=== PATIENT | female | born 1990 | race Asian ===

== ENCOUNTER 2019-11-11 19:11 | Emergency (ER) | payer BC, SELFPAY ==
--- NOTE | ~2019-11-11 | CT_ITS ---
EXAMINATION: CTA chest PE protocol EXAM DATE: 11/11/2019 21:29 INDICATION: Shortness of breath. Chest pain. Allergic reaction. TECHNIQUE: Spiral CTA of the chest (pulmonary arteries) was performed with 100 cc Omnipaque 350 intr avenous contrast injection. Images were acquired during the pulmonary arterial phase. Coronal maxi mum intensity projection 3D-reconstructions were created by the technologist on dedicated workstation . Axial, coronal and sagittal reformatted images were reviewed. The dose-length product (DLP) for t his examination was 219.29 mGy-cm. The exposure was tailored according to patient size (auto mA exp osure control), and iterative reconstruction (ASIR) was used as additional dose reduction technique. There is no prior study for comparison. FINDINGS: Pulmonary arteries are well opacified and without intraluminal filling defects. No thora cic aortic dissection. The lungs are clear. There are no pleural or pericardial effusions. Trach eobronchial tree is patent. There is no mediastinal, hilar or axillary lymphadenopathy. There is no pneumothorax. Heart normal in size. No evidence of coronary arterial calcification. Upper abd omen is unremarkable. The bones are unremarkable. IMPRESSION: 1. Unremarkable CT pulmonary examination. Reviewed, dictated and finalized at location A.
[2019-11-11 19:15] VITALS: BP 143/88; PULSE 118; RESP 20; TEMP 36.8; O2SAT 99
[2019-11-11 19:42] VITALS: BP 138/100; PULSE 112; RESP 22; O2SAT 98
[2019-11-11 19:47] VITALS: O2SAT 100
--- NOTE | 2019-11-11 20:01 | ECG_ITS ---
Measurements Intervals [place] Rate: 98 P: 52 ID: [id number] QRS: 25 QRSD: 84 T: 31 QT: 328 QTc: 420 Interpretive Statements SINUS RHYTHM NONSPECIFIC T-WAVE ABNORMALITY- ANT/INF LEADS BASELINE WANDER- V4-V6 BORDERLINE ECG Electronically Signed On 11-12-2019 7:19:08 CDT by Joni Dash D.O.
--- NOTE | 2019-11-11 20:03 | ED.ALLEREA ---
HPI - Allergic Reaction General Chief complaint: Allergic Reaction Stated complaint: ALLERGIC REACTION Time Seen by Provider: 11/11/19 19:48 Source: patient Mode of arrival: ambulatory Limitations: no limitations History of Present Illness HPI narrative: This patient is a 29 year old female who presents for evaluation of lip swelling and chest pain. She states yesterday she developed a rash to her abdomen, axilla and extremities so she was evaluated at . She states at that time she was prescribed bactrim for bedbugs . She was also evaluated at an ER yesterday because her rash progressed. Her rash improved after she was given Decadron, pepcid and benadryl. Today she noticed that she starting having midsternal chest pain when she took a breath. She also noticed approximately 1.5 hour ago she had swelling to right lower lip. She has not taken any benadryl, steroid today. She states she has not taken bactrim since yesterday. She denies taking any ACEI. Onset (ago): hour(s) (2) Related Data Home Medications Medication Instructions Recorded Confirmed L norgest/e.estradiol-e.estrad 1 tablet PO DAILY 11/11/19 Allergies Allergy/AdvReac Type Severity Reaction Status Date / Time No Known Allergies Allergy Verified 11/11/19 19:44 Review of Systems Review of Systems: All systems reviewed & are unremarkable except as noted in HPI and below Constitutional: Constitutional: Denies chills and Denies fever(s) ENT: Denies dysphagia and Denies sore throat Comments: lip swelling Cardiovascular: Cardiovascular: Reports chest pain Respiratory: Respiratory: Denies cough and Denies dyspnea Gastrointestinal: Gastrointestinal: Denies abdominal pain, Denies nausea and Denies vomiting Integumentary/Breasts: Skin/Breast: Reports rash Allergic/Immunologic: Allergic/Immunologic: Reports lip swelling, Denies throat swelling and Denies tongue swelling PMF Family History Family History (Updated 11/06/12 @ 14:12 by DOCTOR UNKNOWN) Other Cerebrovascular accident Diabetes mellitus Family history of heart disease in male family member before age 55 Social History Social History Smoking status: Never smoker Alcohol intake: current Gender identity (if verbalized by the patient): Female Exam Const: General: no acute distress and alert Orientation/consciousness: patient oriented x3 HENMT: Head: normocephalic and atraumatic Face and sinus: sinuses nontender Mouth: Yes oropharynx normal, Yes moist mucous membranes and Yes other (right lower lip with mild swelling, no tongue involvement) Throat: posterior oropharynx normal and uvula midline Eyes: Conjunctivae: conjunctivae normal Pupils: Equal, round and reactive pupils present EOM: EOMs intact bilaterally Chest: Chest palpation & inspection: tenderness (sternal tenderness) sternum Resp: Effort & Inspection: normal respiratory effort and not tachypneic Auscultation: clear to auscultation bilaterally Cardio: Rate: tachycardic Rhythm: regular rhythm Heart sounds: no murmurs GI: GI Palp: Yes Soft to palpation, No Tenderness to palpation present (GI), No Guarding due to palpation present (GI), No Rigid due to palpation and No Hernia present Skin: Other: scattered insect bites to legs with mild rash to left upper thigh (urticaria) Course Reevaluation(s) Reevaluation #1: Patient has no complaints and she feels better. She likely has leukocytosis from steroid use. She will discontinue taking bactrim Date: 11/11/19 Time: 22:47 Vital Signs Vital signs: Vital Signs Temperature 98.3 F 11/11/19 19:15 Pulse Rate 118 H 11/11/19 19:15 Respiratory Rate 20 11/11/19 19:15 Blood Pressure 143/88 H 11/11/19 19:15 Pulse Oximetry 99 11/11/19 19:15 Temperature 98.3 F 11/11/19 19:15 Pulse Rate 96 11/11/19 22:39 Respiratory Rate 14 11/11/19 22:39 Blood Pressure 136/100 H 11/11/19 22:39 Pulse Oximetry 100 11/11/19 22:39 MDM
[2019-11-11] MEDS: FAMOTIDINE 20 MG/2 ML VIAL IV PUSH (20:17)
[2019-11-11] MEDS: KETOROLAC 15 MG/ML VIAL (*BKC) IV PUSH (20:21)
[2019-11-11] MEDS: predniSONE 20 MG TABLET 60 MG PO (20:21)
[2019-11-11 20:27] LABS: Basophils Percent Auto 0.2 % (0.2-1.2); Eosinophils Percent Auto 0.1 % (0-4.4); Hemoglobin 13.8 g/dL (12.0-15.0); Immature Granulocyte Absolute 0.08 K/mm3 (0.00-0.031); Immature Granulocyte Percent A 0.4 % (0-0.5); Lymphocytes Absolute Auto 3.13 K/mm3 (0.9-3.2); Lymphocytes Percent Auto 17.5 % (18.3-44.2); Mean Corpuscular HGB Conc 33.7 g/dl (32-36); Mean Corpuscular Hemoglobin 31.2 pg (26-34); Mean Corpuscular Volume 92.8 fl (80-100); Mean Platelet Volume 8.8 fl (7.4-10.4); Monocytes Absolute Auto 1.3 K/mm3 (0.1-0.6); Neutrophils Absolute Auto 13.4 K/mm3 (1.3-6.7); Neutrophils Percent Auto 74.8 % (45.5-73.1); Platelet Count Result 375 k/mm3 (150-375); Red Blood Count 4.42 M/mm3 (4.2-5.4); Red Cell Distribution Width 11.9 % (11.5-14.5); White Blood Count 17.9 K/mm3 (4.5-10.0)
[2019-11-11 20:38] LABS: Prothrombin Time 12.6 Seconds (11.1-14.7)
[2019-11-11 20:39] LABS: Partial Thromboplastin Time 26.9 SECONDS (22.3-36.8)
[2019-11-11 20:41] LABS: D Dimer 1.66 ug/mL (<0.48)
[2019-11-11 20:51] LABS: Alanine Aminotransferase 18 U/L (4-35); Albumin Level 4.6 g/dL (3.5-5.1); Alkaline Phosphatase 54 U/L (38-126); Aspartate Amino Transferase 22 U/L (14-36); Bilirubin,Total 0.4 mg/dL (0.2-1.3); Blood Urea Nitrogen 15 mg/dL (7-17); Calcium 9.2 mg/dL (8.4-10.2); Carbon Dioxide 23 mmol/L (22-30); Chloride 104 mmol/L (98-107); Estimated CRCL calculation 83 ml/min; Estimated Glomerular Filt Rate > 60; Glucose 107 mg/dL (65-105); Potassium 3.5 mmol/L (3.4-5.0); Sodium 139 mmol/L (137-145); Troponin I < 0.012 ng/mL (0.000-0.034)
[2019-11-11 21:00] VITALS: BP 136/93; PULSE 99; RESP 16; O2SAT 98
[2019-11-11 22:39] VITALS: BP 136/100; PULSE 96; RESP 14; O2SAT 100
== END 2019-11-11 23:00 | disposition home or self-care (01) ==
PROVIDERS: Emergency Provider General Practice; PCP Physician Assistant
DX: R07.89 Other chest pain (principal); R22.0 Localized swelling, mass and lump, head; T36.8X5A Adverse effect of other systemic antibiotics, initial encounter
CPT/HCPCS: 36415; 71275; 80053; 81025; 84484; 85025; 85380; 85610; 85730; 93005; 96374; 96375; 99284; J1200; J1885; J7512; Q9967

== ENCOUNTER 2020-03-23 21:36 | Emergency (ER) | payer BC, SELFPAY ==
[2020-03-23 21:40] VITALS: BP 148/98; PULSE 83; RESP 17; TEMP 35.8; O2SAT 97
--- NOTE | 2020-03-23 22:14 | ED.HA ---
HPI - Headache General Chief Complaint: Headache Stated Complaint: headache x 1 month, n/v Time Seen by Provider: 03/23/20 22:13 Source: patient Mode of arrival: ambulatory Limitations: no limitations History of Present Illness HPI Narrative: Patient is a 29-year-old female who has a history of migraine headaches who presents for evaluation of acute on chronic migraine headache. She reports she has been having daily migraines which is typical for her, they usually improve with ibuprofen or Maxalt, but patient states that headache pain worsened today. It has been more severe than other days, but is still typical for her migraine headaches. She reports photosensitivity to light. She reports nausea without vomiting. She denies any vision changes, ear ringing or numbness/weakness. She is ambulatory. She reports pain that radiates into her shoulders. She reports pain when she moves her shoulders. She denies any fever, chills, cough, shortness of breath. No history of cancer. No difficulty with ambulation. She denies any dizziness. Related Data Home Medications Medication Instructions Recorded Confirmed L norgest/e.estradiol-e.estrad 1 tablet PO DAILY 03/23/20 Allergies Allergy/AdvReac Type Severity Reaction Status Date / Time No Known Allergies Allergy Verified 03/23/20 21:38 Review of Systems Review of Systems: Narrative: CONSTITUTIONAL: Denies fever EYES: Denies visual changes ENT: Denies rhinorrhea, congestion, sore throat, or otalgia. CARDIOVASCULAR: Denies chest pain RESPIRATORY: Denies cough or dyspnea. GASTROINTESTINAL: Denies abdominal pain, reports nausea without vomiting GENITOURINARY: Denies dysuria or hematuria. SKIN: Denies rash or itching. MUSCULOSKELETAL: Denies back pain, joint pain, or myalgia. NEUROLOGIC: Reports headache without numbness, or weakness. [facility] Past Medical History Medical History Migraine Family History Family History (Updated 11/06/12 @ 14:12 by DOCTOR UNKNOWN) Other Cerebrovascular accident Diabetes mellitus Family history of heart disease in male family member before age 55 Social History Social History Smoking status: Never smoker Alcohol intake: current Gender identity (if verbalized by the patient): Female Exam Narrative: Exam Narrative: GENERAL: Awake, alert, conversant HEAD: Normocephalic, atraumatic. EYES: 2+ PERRLA and EOMI. ENT: Nares clear, no rhinorrhea or epistaxis. Mucous membranes moist. NECK: Supple. CHEST: No respiratory distress, breathing even and non labored HEART: Regular rate, sinus rhythm ABDOMEN:Non distended, non tender EXTREMITIES: Normal range of motion. No edema. SKIN: Warm, dry, no rash. NEURO:No focal deficits. Alert and oriented x3. Finger to nose intact bilaterally. EOMs intact without nystagmus. No facial droop/asymmetry noted bilaterally. Grimace intact. Intact sensation in face. Hearing intact bilaterally. Shoulder shrug intact. Strength 5/5 bilateral upper extremities. Strength 5/5 bilateral lower extremities. Reflexes 2+ patellar. Heel to ruiz intact bilaterally. Ambulatory with a narrow base, steady gait, no ataxia. Course Vital Signs Vital signs: Vital Signs Temperature 35.8 C L 03/23/20 21:40 Pulse Rate 83 03/23/20 21:40 Respiratory Rate 17 03/23/20 21:40 Blood Pressure 148/98 H 03/23/20 21:40 Pulse Oximetry 97 03/23/20 21:40 Temperature 35.8 C L 03/23/20 21:40 Pulse Rate 83 03/23/20 21:40 Respiratory Rate 17 03/23/20 21:40 Blood Pressure 148/98 H 03/23/20 21:40 Pulse Oximetry 97 03/23/20 21:40 MDM - Headache MDM Narrative Medical decision making narrative: The patient was evaluated in the emergency department for headache. At the time of assessment, ABCs are intact and vital signs are stable. Patient is neurologically intact without any neurological deficits.
[2020-03-23] MEDS: METOCLOPRAMIDE HCL INJ 10 MG/2 ML VIAL IV PUSH (22:50)
[2020-03-23] MEDS: diphenhydrAMINE HCl INJ 50 MG/ML VIAL 25 MG IV PUSH (22:50)
[2020-03-23] MEDS: SODIUM CHLORIDE 0.9% IV 1,000 ML 999 ML IV CONT (22:51)
[2020-03-23] MEDS: KETOROLAC 15 MG/ML VIAL (*BKC) IV PUSH (23:08)
[2020-03-23] MEDS: MAGNESIUM SULF 2 GM/WATER 50ML 2 GM/50 ML BAG IVPB (23:08)
[2020-03-24 00:40] VITALS: BP 143/97; PULSE 85; RESP 18; O2SAT 100
== END 2020-03-24 01:00 | disposition home or self-care (01) ==
PROVIDERS: Emergency Provider Emergency Medicine; PCP Physician Assistant
DX: G43.909 Migraine, unspecified, not intractable, without status migrainosus (principal)
CPT/HCPCS: 96365; 96367; 96375; 99284; J0131; J1100; J1200; J1885; J2765; J3475; J7030

== ENCOUNTER → 2022-08-14 10:38 | Outpatient (CLI) | payer BC, SELFPAY ==
--- NOTE | ~2022-08-14 | XR_ITS ---
XR_CERV2-3V_CR DATE: 08/14/2022 11:12 INDICATION: Neck pain TECHNIQUE: AP, open-mouth and lateral views COMPARISON: None FINDINGS: There is reversal of cervical curvature which may be due to muscle spasm. There is slight d extroscoliosis of the cervical and upper thoracic spine. C1 and C2 are normally aligned and the odontoid process is intact. No fracture or dislocation, locked facet or prevertebral soft tissue swelling. Cervical interspaces are preserved. IMPRESSION: Reversal cervical curvature and slight dextroscoliosis Reviewed, dictated and finalized at Location A. Reviewed, dictated and finalized at location B. APEUTIC CASE MANAGER
--- NOTE | ~2022-08-14 | XR_ITS ---
XR thoracic spine 2V DATE: 08/14/2022 11:12 INDICATION: Thoracic spine pain TECHNIQUE: AP, lateral, swimmer views COMPARISON: None FINDINGS: There is reversal of cervical curvature. No fracture or dislocation or bone destruction of the thoracic spine. The thoracic pedicles are intac t. No paraspinal soft tissue thickening. IMPRESSION: Negative thoracic spine Reviewed, dictated and finalized at location B. GE MANAGEMENT SYSTEM OPERATOR IMPRESSION: Negative thoracic spine
== END ==
PROVIDERS: PCP Physician Assistant; Visit Provider Physician Assistant
DX: M54.2 Cervicalgia (principal); M54.6 Pain in thoracic spine
CPT/HCPCS: 72040; 72070

== ENCOUNTER → 2023-02-23 07:57 | Outpatient (CLI) | payer BC, SELFPAY ==
--- NOTE | ~2023-02-23 | US_ITS ---
EXAMINATION: US abdomen limited DATE: 02/23/2023 08:22 INDICATION: Right upper quadrant abdominal pain. TECHNIQUE: Multiple grayscale and Doppler ultrasound images of the abdomen were obtained. COMPARISON: CT chest 11/11/2019 FINDINGS: The visualized portions of the head and body of the pancreas are normal. There is a 7 mm hy perechoic mass in the liver. There is antegrade flow in main portal vein. The gallbladder is normal i n size. No gallstones or gallbladder wall thickening. There is no sonographic Pepper sign. The common duct is normal and measures 4 mm. IMPRESSION: 1. 7 mm hyperechoic liver mass. In the absence of known malignancy or chronic liver disease, this fin ding is likely a hemangioma. Reviewed, dictated and finalized at location A. IMPRESSION: 1. 7 mm hyperechoic liver mass. In the absence of known malignancy or chronic l iver disease, this finding is likely a hemangioma.
== END ==
PROVIDERS: PCP Physician Assistant; Visit Provider Physician Assistant
DX: R10.11 Right upper quadrant pain (principal); R16.0 Hepatomegaly, not elsewhere classified
CPT/HCPCS: 76705

== ENCOUNTER → 2023-03-06 09:01 | Outpatient (CLI) | payer BC, SELFPAY ==
--- NOTE | ~2023-03-06 | CT_ITS ---
EXAMINATION: CT abdomen wo/w con DATE: 03/06/2023 09:32 INDICATION: Hepatic hemangioma TECHNIQUE: Computed tomography (CT) of the abdomen and pelvis was performed without and with 100 mL O mnipaque-350 intravenous contrast. Automated exposure control and iterative reconstruction technique were employed. The dose-length product was 546.89 mGy-cm. COMPARISON: Ultrasound dated 02/18/2023 FINDINGS: Lung bases are clear. Heart size is normal. No pericardial or pleural effusion. Small region of focal hepatic steatosis at the ligamentum teres. No other hepatic lesions identified. Specifically no evid ent correlate for the 7 mm hyperechoic lesion on prior ultrasound. Gallbladder, pancreas, spleen, nicola ateral adrenal glands and kidneys are normal. Visualized portions of bowels are unremarkable. Small f at-containing umbilical hernia. No pathologically enlarged abdominal or upper pelvic lymphadenopathy. Bones are unremarkable. IMPRESSION: 1. No correlate identified for the 7 mm hyperechoic hepatic lesion identified on prior ultrasound. Reviewed, dictated and finalized at location A. IMPRESSION: 1. No correlate identified for the 7 mm hyperechoic hepatic lesion identified o n prior ultrasound.
== END ==
PROVIDERS: PCP Physician Assistant; Visit Provider Physician Assistant
DX: D18.03 Hemangioma of intra-abdominal structures (principal)
CPT/HCPCS: 74170; Q9967

== ENCOUNTER 2023-09-13 08:11 | Outpatient (CLI) | payer BC, SELFPAY ==
--- NOTE | ~2023-09-13 | NM_ITS ---
EXAMINATION: NM hepatobiliary w pharm DATE: 09/13/2023 10:10 INDICATION: Upper abdominal pain. COMPARISON: CT abdomen 03/06/2023 TECHNIQUE: 4.9 mCi Tc-99m mebrofenin (Choletec) was administered intravenously. Scintigraphic images of the abdomen were obtained for one hour. Then, 1.46 mcg sincalide (Kinevac) IV was administered, a nd imaging was continued for 30 minutes. FINDINGS: There is normal clearance of radiotracer from the blood pool. There is homogeneous tracer u ptake by the liver. Activity progresses to the bowel and gallbladder. Gallbladder ejection fraction (GBEF) was 15%. Note that most patients with gallbladder dysfunction have GBEF < 35%, which overlaps with the broad normal range of 10-90%. IMPRESSION: 1. Gallbladder ejection fraction in the lower range of normal. Note that this value overlaps with th e range of values that may be seen with gallbladder dysfunction and/or chronic cholecystitis if there is appropriate clinical correlation. Reviewed, dictated and finalized at location A. IMPRESSION: 1. Gallbladder ejection fraction in the lower range of normal. Note that this value overlaps with the range of values that may be seen with gallbladder dysfu nction and/or chronic cholecystitis if there is appropriate clinical correlatio nVipul
== END 2023-09-13 08:12 | disposition home or self-care (01) ==
PROVIDERS: PCP Physician Assistant; Visit Provider Physician Assistant
DX: R10.10 Upper abdominal pain, unspecified (principal)
CPT/HCPCS: 78227; A9537; J2805

== ENCOUNTER 2023-11-14 12:34 | Outpatient (CLI) | payer BC, SELFPAY ==
[2023-11-14 13:19] LABS: Hematocrit 38.8 % (37.0-47.0); Hemoglobin 12.7 g/dL (12.0-15.0)
[2023-11-14 13:25] LABS: Alanine Aminotransferase 13 U/L (6-35); Albumin Level 4.3 g/dL (3.5-5.1); Alkaline Phosphatase 51 U/L (38-126); Amylase 80 U/L (30-110); Aspartate Amino Transferase 19 U/L (14-36); Bilirubin,Total 0.6 mg/dL (0.2-1.3); Lipase 270 U/L (23-300)
== END 2023-11-14 12:35 | disposition home or self-care (01) ==
LOC: ANHSURGERY 12:39
PROVIDERS: Anesthesiology; PCP Physician Assistant; Visit Provider Surgery
DX: K82.8 Other specified diseases of gallbladder (principal); Z78.9 Other specified health status
CPT/HCPCS: 36415; 80076; 82150; 83690; 85014; 85018

== ENCOUNTER 2023-11-23 00:45 | Day surgery (SDC) | payer BC, SELFPAY ==
[2023-11-09 14:51] VITALS: BMI 27.4
--- NOTE | 2023-11-09 15:00 | PC.NURSE ---
Report to the Outpatient Waiting Room, entrance under the green pavilion located off [facility], at time 10:00a.m on date 11/23/2023. Planned Procedure Time: 12:00p.m. Time changes happen often and if your time is changed the preop area will call you the afternoon before. - You and your visitor will be asked to self-screen and do not enter if you have any COVID symptoms. - A mask is optional within the hospital at this time. Patients may have clear liquids (water, carbonated beverages, clear teas, apple juice) until 3 hours prior to surgery with a maximum of 20 ounces. - No food from midnight until time of surgery - Infants may have breast milk until 4 hours before surgery, formula 6 hours prior to surgery. - Children will be allowed to drink immediately following surgery. If applicable, please bring a bottle or sippy cup to assist with drinking. Juice, water, soda, and popsicles are readily available. For infants on formula, please bring formula the day of surgery. Pacifiers are allowed. Take the following medications with a SIP of water the morning of surgery: N/A DO NOT STOP ANY OF YOUR OTHER PRESCRIPTION MEDICATIONS PRIOR TO SURGERY ?EXCEPT THE FOLLOWING Medications to discontinue per physician Iron and Vitamin D Date to take last dose 11/20/2023 Please no make-up, nail armenian, hairspray, perfume, deodorant, or body powder the day of surgery. No jewelry (including any body piercings) or valuables the day of surgery, leave them at home. Please take a shower or bath the night before, or the morning of, surgery with an antibacterial soap. Wear comfortable, loose fitting clothing. Children are encouraged to wear pajamas. - Jewelry must be removed prior to entering the operating room. Rings and piercings that are not removed may be cut off. - The hospital will not accept responsibility for valuables. - Please leave all valuables, including medications, at home the day of surgery. If you are going home after surgery, a licensed professional driver must drive you home. - NO public transportation without another adult if you receive anesthesia. - We recommend that an adult stay with you for 24 hours following discharge. - We also recommend that you do not drive, make important decision, drink alcoholic beverages, or take any drugs that were not prescribed by your health care provider for at least 24 hours after your discharge time. For Pediatric surgeries, we recommend two adults accompany the child home. Follow any additional instructions given to you from your surgeon. If you or anyone in your household have experienced Covid symptoms in the past week, please notify your surgeon or the nurse liaison at the phone number below for possible testing. Telephone instructions given to Opal Rucker and asked if any additional questions and then verbalized understanding. Patient advised to call surgeon office or pre surgery nurse liaison [phone] if any additional questions.
[2023-11-23] VITALS (7 sets, daily range): BP systolic 115–140; BP diastolic 80–95; PULSE 66–103; RESP 16–22; TEMP 36.4–36.5; O2SAT 98–100
[2023-11-23] MEDS: KETOROLAC 15 MG/ML VIAL (*BKC) IV PUSH (10:40)
[2023-11-23] MEDS: ACETAMINOPHEN 500 MG TABLET 1000 MG PO (10:40)
--- NOTE | 2023-11-23 11:08 | WPDANESEPPF ---
Anes - Initial Pre Proc Eval Procedure: Operation Date: 11/23/23 12:00 Proposed Procedures p Laparoscopic Cholecystectomy, Possible Open - Rigo Stark DO s Open Umbilical Hernia Repair - Rigo Stark DO Date/Time: 11/23/23 11:08 Surgeon: Rigo Stark DO Pre Op Diagnosis: billiary dyskinesia, umbilical hernia Patient Data Age: 33 Gender: F Height: 1.65 m Weight: 75 kg Last Vital Signs Temp 97.6 F 11/23/23 10:18 Pulse 75 11/23/23 10:18 Resp 16 11/23/23 10:18 BP 129/95 H 11/23/23 10:18 Pulse Ox 99 11/23/23 10:18 O2 Del Method Room Air 11/23/23 10:18 Allergies Allergy/AdvReac Type Severity Reaction Status Date / Time No Known Allergies Allergy Verified 11/23/23 10:46 Home Medications Medication Instructions Recorded Confirmed Type ubrogepant 100 mg tablet (Ubrelvy) 100 mg PO PRN PRN Migraine Headache 09/27/21 11/23/23 History ergocalciferol (vitamin D2) 1,250 1,250 mcg PO WEEKLY 11/09/23 11/23/23 History mcg (50,000 unit) capsule ferrous gluconate 324 mg (38 mg 324 mg PO DAILY 11/09/23 11/23/23 History iron) tablet Patient hx anesthesia problems: none Family hx anesthesia problems: none Results Review: All pre-operative results and documents have been reviewed as part of the pre-operative evaluation. [facility] Past Medical History Medical History Abnormal Pap smear of cervix (08/16/20) 08-16-2020 Ascus +hpv/ colpo 09/22/2020 Benign rpt pap in [address] [facility] [place] Bacterial vaginal infection Encounter for IUD removal (07/21/19) Alejandra HSV-1 infection genital area IBS (irritable bowel syndrome) Migraine Vaginal irritation Surgical History Surgical History History of colposcopy with cervical biopsy (09/22/20) benign Family History Family History Father Diabetes mellitus Hypertension Mother Hypertension Lupus Rheumatoid arthritis Other Cerebrovascular accident Family history of heart disease in male family member before age 55 Social History Social History Smoking status: Never smoker Alcohol intake: current Drinks per week: 1 Alcohol use details: Ocassional Substance use: never Substance use type: does not use Living arrangements: alone Additional living arrangements comments: single Occupation/Education: occupation 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 Gender identity (if verbalized by the patient): Female Sexual Orientation (if Verbalized by the Patient): Straight or Heterosexual Anes - Eval Final PreProcedure Day of Procedure 11/23/23 11:08 Patient weight: normal Heart: regular rate and rhythm Lungs: clear to auscultation Airway: Mallampati scale class II Neurological: alert and oriented Last oral intake: >/= 8 hours ASA classification: I Emergent: no Anesthetic plan: proceed Anesthesia type and monitoring: general ETT and standard monitoring Results Review: All pre-operative results and documents have been reviewed as part of the pre-operative evaluation. Pt active w her job, no cp or sob, can walk 1 mile without cp or sob. Informed Consent: The patient's anesthetic plan and its attendant risks and benefits were discussed with the patient/family/POA. Questions were solicited and answers provided to the satisfaction of the patient/family/POA.
--- NOTE | 2023-11-23 11:40 | PM.IMHP ---
H&P: HPI History of Present Illness Date/Time: 11/23/23 11:40 Chief Complaint: biliary dyskinesia Narrative: 33 yo woman presents for laparoscopic cholecystectomy. She reports no changes since last seen in office. Review of Systems Review of Systems: All systems reviewed & are unremarkable except as noted in HPI and below Constitutional: Constitutional: Denies chills, Denies fever(s), Denies headache(s) and Denies weight loss Eyes: Eyes: Denies change in vision ENT: Denies dizziness, Denies headache(s), Denies neck mass and Denies throat swelling Cardiovascular: Cardiovascular: Denies chest pain, Denies lightheadedness and Denies dyspnea Respiratory: Respiratory: Denies cough, Denies dyspnea and Denies wheezing Gastrointestinal: Gastrointestinal: Denies abdominal pain, Denies change in bowel habits, Denies nausea and Denies vomiting Genitourinary: Genitourinary: Denies hematuria and Denies dysuria Musculoskeletal: Musculoskeletal: Reports as per HPI Integumentary/Breasts: Skin/Breast: Reports as per HPI Neurologic: Denies dizziness and Denies headache(s) Allergic/Immunologic: Allergic/Immunologic: Denies throat swelling and Denies wheezing [facility] Past Medical History Medical History Abnormal Pap smear of cervix (08/16/20) 08-16-2020 Ascus +hpv/ colpo 09/22/2020 Benign rpt pap in 1 year per [facility] Bacterial vaginal infection Encounter for IUD removal (07/21/19) Alejandra HSV-1 infection genital area IBS (irritable bowel syndrome) Migraine Vaginal irritation Surgical History Surgical History History of colposcopy with cervical biopsy (09/22/20) benign Family History Family History Father Diabetes mellitus Hypertension Mother Hypertension Lupus Rheumatoid arthritis Other Cerebrovascular accident Family history of heart disease in male family member before age 55 Social History Social History Smoking status: Never smoker Alcohol intake: current Drinks per week: 1 Alcohol use details: Ocassional Substance use: never Substance use type: does not use Living arrangements: alone Additional living arrangements comments: single Occupation/Education: occupation 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 Gender identity (if verbalized by the patient): Female Sexual Orientation (if Verbalized by the Patient): Straight or Heterosexual Meds Home Medications and Allergies Home Medications Medication Instructions Recorded Confirmed Type ubrogepant 100 mg tablet (Ubrelvy) 100 mg PO PRN PRN Migraine Headache 09/27/21 11/23/23 History ergocalciferol (vitamin D2) 1,250 1,250 mcg PO WEEKLY 11/09/23 11/23/23 History mcg (50,000 unit) capsule ferrous gluconate 324 mg (38 mg 324 mg PO DAILY 11/09/23 11/23/23 History iron) tablet Allergies Allergy/AdvReac Type Severity Reaction Status Date / Time No Known Allergies Allergy Verified 11/23/23 10:46 Vital Signs Vital Signs - 24 hr 11/23/23 10:18 Temperature 36.4 C Pulse Rate 75 Respiratory Rate 16 Blood Pressure 129/95 H Pulse Oximetry 99 Oxygen Delivery Room Air Exam Const: General: no acute distress and alert Orientation/consciousness: patient oriented x3 HENMT: Head: normocephalic and atraumatic Ears: hearing grossly normal bilaterally Face/Nose/Sinus: Normal nares present Mouth: Yes Normal oral and palatal mucosa present Eyes: Periorbital: periorbital findings normal Sclera: sclerae normal EOM: EOMs intact bilaterally Neck: Neck: normal visual inspection, no lymphadenopathy and trachea midline Chest: Chest palpation & inspection: normal inspection of the chest Resp: Effort & Inspection: normal respiratory effort Auscultati
--- NOTE | 2023-11-23 11:41 | WPDHPUPDATE1 ---
History and Physical Update Update Date/Time: 11/23/23 11:41 History and Physical has been reviewed, including an updated exam of the patient. There are NO changes in the patient's condition. Risks, benefits, and alternatives have been discussed and questions answered. Patient agrees to proceed with procedure.
[2023-11-23] MEDS: ceFAZolin 2 GM/D5W 50 ML 2 GM/50 ML BAG IVPB (12:07)
[2023-11-23] MEDS: BUPIVACAINE/EPINEPHRINE 0.5% 10 ML VIAL 30 ML INFILTRATE (12:34)
--- NOTE | 2023-11-23 12:54 | W.PM.PROC2 ---
Procedure Note - Detailed Date of Procedure 11/23/23 Pre-op Diagnosis billiary dyskinesia, umbilical hernia Post-op Diagnosis Same Procedure Performed 1. Laparoscopic cholecystectomy 2. Open 0.5 cm umbilical hernia repair Surgeon Rigo Stark, DO Anesthesia General and Local (0.5% bupivacaine) Indications This is a 33-year-old woman who presents for laparoscopic cholecystectomy and open umbilical hernia repair. She was experiencing upper abdominal pain after eating off and on for the past several years but this has been worse over the past month. She had a prior CT and ultrasound which did not show any gallbladder abnormalities, but HIDA scan showed a decreased gallbladder ejection fraction at 15%. She was also found to have a small umbilical hernia on exam. Discussions were made with the patient about treatment options and decision was made to proceed with laparoscopic cholecystectomy and open umbilical hernia repair. Findings Laparoscopic cholecystectomy was performed. The gallbladder had a few pericholecystic adhesions but otherwise appeared normal. The cystic duct appeared normal in size. The gallbladder was removed and sent to the lab for pathology. No other intra-abdominal abnormalities were noted. The patient did have a 0.5 cm umbilical hernia. At the conclusion of the laparoscopic cholecystectomy, the hernia defect was closed using an 0 Vicryl [id number] suture. Description of Procedure Procedure as well as risks, benefits, and alternatives were discussed with patient. Written consent was obtained and placed in chart prior to procedure. The patient was brought back to surgical suite. Patient was placed in supine position on operating table. Time-out was done to confirm patient and procedure. Patient was then intubated by the anesthesia department. Abdomen was prepped and draped in sterile fashion using chlorhexidine prep. 0.5% bupivacaine with epinephrine was infiltrated at each site of incision. An 11 millimeter curvilinearl incision was made at the inferior portion of the umbilicus using a 15 blade scalpel. Blunt dissection was carried down to the linea alba. The hernia defect was identified and some preperitoneal fat was excised from the hernia sac using electrocautery. The peritoneum was then bluntly entered. A 5 mm millimeter trocar was inserted and carbon dioxide insufflation was used to create a pneumoperitoneum. The camera was inserted and the abdomen was inspected. The patient was placed in reverse Trendelenberg position and rotated slightly to the left. A 11 millimeter incision was made in the epigastric region, and a 11 millimeter trocar was inserted under direct visualization. Two 5 millimeter incisions were made in the right upper quadrant, and two 5 millimeter trocars were inserted under direct visualization. The gallbladder was identified and grasped at the fundus and retracted superiorly. It was then grasped at the infundibulum retracted laterally. Careful dissection around the neck of the gallbladder was performed using blunt dissection with a [place] grasper and hook electrocautery. The cystic duct was identified, and a window was created behind it. The cystic artery was also identified and a window was created behind it. The critical view of safety was identified, visualizing the cystic duct running directly into the neck of the gallbladder, and the cystic artery running directly into the wall of the gallbladder. A 5 millimeter clip ruffler was then used to place 2 clips proximally and 1 clip distally on both the cystic duct and cystic artery. They were then both transected using endoscopic scissors. Once safely away from the ankur hepatitis, the gallbladder was dissected free from the liver bed using hook electrocautery. Hemostasis was achieved along the way. The gallbladder was removed completely and then removed through the umbilical port. The liver bed was then inspected. Hemostasis appeared adequ
[2023-11-23] MEDS: LACTATED RINGERS 1,000 ML 30 ML IV CONT ×2 (13:01)
[2023-11-23] MEDS: fentaNYL CITRATE INJ (*CRX) 100 MCG/2 ML VIAL 25 MCG IV PUSH ×8 (13:05→13:45)
[2023-11-23] MEDS: oxyCODONE HCL (*CRX) 5 MG TAB IR PO (13:50)
== END 2023-11-23 14:40 | disposition home or self-care (01) ==
PROVIDERS: PCP Physician Assistant; Visit Provider Surgery
PROC: 0FT44ZZ Resection of Gallbladder, Percutaneous Endoscopic Approach (ICD-10-PCS; CPT 47562; principal; 2023-11-23 12:00)
PROC: (CPT 47562; 2023-11-23 12:00)
DX: K82.8 Other specified diseases of gallbladder (principal); K42.9 Umbilical hernia without obstruction or gangrene
CPT/HCPCS: 47562; 88304; A9270; J0690; J1100; J1885; J2250; J2371; J2405; J2704; J3010; J7030; J7120

== ENCOUNTER 2025-04-07 12:25 | Outpatient (CLI) | payer BC, SELFPAY ==
--- OUTSIDE RECORDS SUMMARY | 2023-11-24 16:30 | XMS_ITS ---
Author Organization [facility] [place] ([address]) Address [address] [facility] [address] [place] [address] Care Team Providers Care Equip Tech Name Role Phone Nneka Mathur Primary Care Provider Unavailab le Doris Frey Unavailable [phone] Z[facility]-Migration, Provider Unavailable Unavailab le REASON FOR VISIT Multum To Medispan Conversion Encounter Medications Medication SIG (Take, Route, Frequency, Duration) Notes Start Date End Date Status Ubrelvy 50 MG 1 tab(s) orally once Active Encounters Encounter Location Date Provider Diagnosis [address] [address] 11/24/2023 Provider ZZ-Migration Plan Of Treatment No Information Progress Notes * Opal RUCKERDOB: 2 (34 yo F)Acc No.[id number]:11/24/2023 Patient: Opal BORJA Provider: Gregorio Mojica :1990 A ge:33 Y S ex:Female Date:11/24/2023 Address:[address] [place], [place] [id number] Pcp:Nneka Mathur Subjective: * Chief Complaints: * 1 . Multum To Medispan Conversion Encounter. * Medical History: * Medications: T aking Ubrelvy 50 MG Tablet 1 tab(s) orally once Objective: * Vitals: Assessment: Plan: * Treatment: * Billing Information: * Visit Code: * Procedure Codes: * Electronic signature of Prov miler ZZ-Migration on 04/07/2025 at 02:09 PM CDT Sign off status: Pending * Provider: Gregorio werner Migration Date: 0 11/24/2023 Generated for Tenzin gonzalez/Rachel/Zoila on: 1 02:09 PM CDT
--- OUTSIDE RECORDS SUMMARY | 2025-04-07 14:08 | XMS_ITS | Clinical Summary ---
Author Organization [facility] Address [facility] [place] [address] Care Team Providers Care Finance Consultant Name Role Phone Nneka Mathur Primary Care Provider [phone] Allergies No known active allergies Medications predniSONE 50 MG tablet TAKE 2 TABLETS BY MOUTH EVERY DAY FOR 5 DAYS 0 Active Levonorgest-Eth Estrad - 0.15-0.03 &0.01 MG tablet Take 1 tablet by mouth daily. 0 Active EPINEPHrine 0.3 MG/0.3ML injection Inject 0.3 mLs (0.3 mg total) into the muscle as needed for Anaphylaxis (Severe dizziness or shortness of breath). Return to ED if used. 2 each 0 Active montelukast (SINGULAIR) 10 MG tablet Take 1 tablet (10 mg total) by mouth daily as needed (Itching/hives). 5 tablet 0 Active albuterol sulfate HFA 108 (90 Base) MCG/ACT inhaler Inhale 2 puffs into the lungs every 6 (six) hours as needed for Wheezing or Shortness of breath. 1 Inhaler 0 Active LORazepam 0.5 MG tablet Take 1 tablet (0.5 mg total) by mouth every 8 (eight) hours as needed for Anxiety (Severe itching, restlessness.). 10 tablet 0 Active Family History Medical History Relation Comments Hypertension Father Hypertension Mother Relation Status Comments Father Mother Social History Tobacco Use Types Packs/Day Years Used Date Smoking Tobacco: Never Smokeless Tobacco: Never Alcohol Use Standard Drinks/Week Comments Yes 0 (1 standard drink = 0.6 oz pur e alcohol) SOCIALLY Comments No Sex and Gender Information Value Date Recorded Sex Assigned at Not on file Legal Sex Female 5:47 PM CDT Gender Identity Not on file Sexual Orientation Not on file Last Filed Vital Signs Vital Sign Reading Time Taken Comments Blood Pressure 130/78 11/13/2019 1:30 AM CDT Pulse 117 11/13/2019 1:30 AM CDT Temperature 36.7 C (98.1 F) 11/13/2019 12:42 AM CDT Respiratory Rate 22 11/13/2019 1:30 AM CDT Oxygen Saturation 96% 11/13/2019 12:15 AM CDT Inhaled Oxygen Concentration - - Weight 73.5 kg (162 lb) 11/12/2019 11:51 PM CDT Height 165.1 cm (5' 5) 11/12/2019 11:51 PM CDT Body Mass Index 26.96 11/12/2019 11:51 PM CDT Plan of Treatment Health Maintenance Due Date Last Done Comments Cervical Cancer Screening Pa p Smear (Age 30 to 64) Every 3 Years 1992 Annual Physical 1995 Hepatitis C 2010 DTaP, Tdap and Td Vaccines ( 1 - Tdap) 2011 Hepatitis B Vaccines (1 of 3 - 19+ 3-dose series) 2011 HPV Vaccines (1 - 3-dose SCD M series) 2019 Cervical Cancer Screening Pa p with HPV Testing (Age 30 to 64) Every 5 Years 2022 Cervical Cancer Screening with HPV 2022 COVID-19 Vaccine ( - 2024-2 6 season) 2025 Influenza Adult (#1) 2025 Hepatitis A Vaccines Aged Out No long er eligible based on patient's age to complete this topic Meningococcal B Vaccine Aged Out No l onger eligible based on patient's age to complete this topic Meningococcal Vaccine Aged Out No quinn dia eligible based on patient's age to complete this topic Pneumococcal Vaccine: Pediat rics (0 to 5 Years) and At-Risk Patients (6 to 49 Years) Aged Out No longer eligible b ased on patient's age to complete this topic RSV Immunizations Under 20 Months Aged Out No longer eligible based on patient's age to complete this topic Insurance [facility] Care Teams Finance Consultant Relationship Specialty Start Date End Date Nneka Mathur PA PCP - General PHYSICIAN DIALYSIS RN 11/10/19
--- OUTSIDE RECORDS SUMMARY | 2025-04-07 14:08 | XMS_ITS | Patient Health Record ---
Author Organization [facility] [place] ([address]) Address [address] [place] [address] Care Team Providers Care Knotting Machine Operator Name Role Phone Nneka Mathur Primary Care Provider Doris Borrero Unavailable [phone] Allergies No Known Allergies Reason For Referral No Information Medications Medication SIG (Take, Route, Frequency, Duration) Notes Start Date End Date Status UBRELVY 50 mg 1 tab(s) orally once Active Ubrelvy 50 MG 1 tab(s) orally once Active Social History Tobacco Use: Social History Observation Description Date Details (start date - stop date) Never Smoker NA - NA Smoking Smart Form: Question Answer Notes Are you a: never smoker Problems Problem Type SNOMED Code ICD Code Onset Dates Problem Status W/U Status Risk Notes Problem Chronic allergic conjunctivitis (38806863) Other chronic allergic conjunctivitis (H10.45) Active confirmed Problem Allergic rhinitis caused by pollen (disorder) (28376897) Allergic rhinitis due to pollen (J30.1) Active confirmed Problem Allergic rhinitis (98121030) Other allergic rhinitis (J30.89) Active confirmed Problem Chronic rhinitis (35530983) Chronic rhinitis (J31.0) Active confirmed Problem Uncomplicated mild persistent asthma (019734488) Mild persistent asthma, uncomplicated (J45.30) Active confirmed Problem Uncomplicated moderate persistent asthma (046567111) Moderate persistent asthma, uncomplicated (J45.40) Active confirmed Problem Uncomplicated severe persistent asthma (993740164) Severe persistent asthma, uncomplicated (J45.50) Active confirmed Problem Diarrhea (52038564) Diarrhea, unspecified (R19.7) Active confirmed Problem Allergic rhinitis caused by animal hair and dander (289755656238074) Allergic rhinitis due to animal (cat) (dog) hair and dander (J30.81) Active confirmed Problem Angioneurotic edema (79341495) Angioneurotic edema, initial encounter (T78.3XXA) Active confirmed Problem Idiopathic urticaria (02657719) Idiopathic urticaria (L50.1) Active confirmed Plan Of Treatment No Information Insurance Providers Payer Name Payer Address Payer Phone Subscriber Number Group Number Insured Name Patient Relationship to Insured Coverage Start Date Coverage End Date [facility] [address] [place] [address] [id number] Opal Rucker Self - patient is the insured Medical (General) History Surgical History Surgery Date(Month/Year)
--- OUTSIDE RECORDS SUMMARY | 2025-04-07 14:09 | XMS_ITS | Clinical Summary ---
Author Organization [address] Address [address] [place] [address] Care Team Providers Care Soap Drier Operator Name Role Phone No, Physician Primary Care Provider [phone] Allergies No known active allergies Medications atogepant (Qulipta) 60 mg tablet Take 1 tablet every day by oral route as directed. 08/11/2022 Active phentermine 15 mg capsule Take by mouth daily 11/28/2024 Active Ubrelvy 100 mg tablet ONE TAB BY MOUTH AT ONSET OF MIGRAINE. MAY REPEAT IN 2 HOURS IF NEEDED. MAX 200MG/24 HOURS. Active Active Problems No known active problems Encounters Date Type Department Care Team Description 02/02/2025 Results Follow-Up [facility] at [address] [place] [address] Mary Lou Bennett NP Urine culture Urine, bladder 02/01/2025 7:19 PM CDT - 02/01/2025 11:59 PM CDT [place] [address] Acute cystitis without hematuria Discharge Disposition: Discharge to home or self care 02/01/2025 2:15 PM CDT Office Visit [facility] [address] [place] [id number] Melly Ribeiro NP Acute cystitis without hematuria (Primary Dx) from Last 3 Months Social History Tobacco Use Types Packs/Day Years Used Date Smoking Tobacco: Never Comments No Sex and Gender Information Value Date Recorded Sex Assigned at Not on file Legal Sex 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[employer] Gender Identity Not on file Sexual Orientation Not on file Obstetrics History Last Filed Vital Signs Vital Sign Reading Time Taken Comments Blood Pressure 132/68 02/01/2025 2:12 PM CDT Pulse 100 02/01/2025 2:30 PM CDT Temperature 36.8 C (98.3 F) 02/01/2025 2:12 PM CDT Respiratory Rate 18 02/01/2025 2:12 PM CDT Oxygen Saturation 100% 02/01/2025 2:12 PM CDT Inhaled Oxygen Concentration - - Weight 69 kg (152 lb 3.2 oz) 02/01/2025 2:12 PM CDT Height 165.1 cm (5' 5) 09/19/2012 8:48 PM CDT Body Mass Index - - Plan of Treatment Health Maintenance Due Date Last Done Comments Cervical Cancer Screening 1992 Depression Screening 1992 Hepatitis C Screening 1992 Varicella Vaccines (1 of 2 - 13+ 2-dose series) 2005 Hepatitis B Screening 2010 Regular Well Visit/Exam 18-64 2010 HPV Vaccines (1 - 3-dose SCDM series) 2019 Influenza Vaccine (#1) 2025 , 05/08/2023, 03/11/2020 DTaP/Tdap/Td Vaccine (2 - Td or Tdap) 09/08/2027 09/07/2017 Covid-19 Vaccine Completed 04/28/2024, , 06/08/2022, Additional history exists Pneumococcal vaccine <65 Aged Out No longer eligible based on patient's age to complete this topic Procedures Procedure Name Priority Date/Time Associated Diagnosis Comments URINE CULTURE Routine 02/01/2025 7:19 PM CDT Acute cystitis without hematuria POCT URINALYSIS DIPSTICK Routine 02/01/2025 2:21 PM CDT Acute cystitis without hematuria from Last 3 Months Results * (ABNORMAL) Urine culture Urine, bladder (02/01/2025 7:19 PM CDT) Report Final Report: Greater than or equal to 100,000 colonies/mL of Escherichia coli The susceptibility pattern of this Escherichia coli indicates the possible production of an extended spectrum beta lactamase (ESBL). Patients infected with ESBL-producing organisms require contact isolation precautions. For therapeutic options for this organism, please contact infectious diseases. (.) Comment:Testing performed by : [facility], [address] [place]., [address] Organism ESCHERICHIA COLI KULWINDERPANCHO BECKI Urine, bladder 02/01/2025 7: 19 PM CDT 02/01/2025 10:17 PM CDT Narrative CERNER CH - 02/04/2025 5:54 PM CDT Testing performed by [facility] ([phone]) Organism Antibiotic Method Susceptibility Escherichia coli Ampicillin INTERPRETATION Resistant Escherichia coli Cefazolin INTERPRETATION Susceptible Escherichia coli Nitrofurantoin INTERPRETATION Susceptible Escherichia coli Gentamicin INTERPRETATION Susceptible Escherichia coli Trimethoprim with Sulfamethoxazole IN TERPRETATION Susceptible Escherichia coli Meropenem INTERPRETATION Susceptible Escherichia coli Cefepime INTERPRETATION Susceptible Escherichia coli Ciprofloxacin INTERPRETATION Susceptible Escherichia coli Ceftazidime INTERPRETATION Resistant Escherichia coli Ceftriaxone INTERPRETATION Susceptible Escherichia coli Cephalexin INTERPRETATION Susceptible Escherichia coli Cefuroxime-axetil INTERPRETATION Susceptible Escherichia coli Cefdinir INTERPRETATION Susceptible Escherichia coli Amikacin INTERPRETATION Susceptible Escherichia coli Aztreonam INTERPRETATION Susceptible Escherichia coli Imipenem INTERPRETATION Susceptible Escherichia coli Ertapenem INTERPRETATION Susceptible Escherichia coli Minocycline INTERPRETATION Susceptible Escherichia coli Tobramycin INTERPRETATION Susceptible Escherichia coli Levofloxacin INTERPRETATION Susceptible Escherichia coli Doxycycline INTERPRETATION Susceptible Escherichia coli Ampicillin with Sulbactam INTERPRETAT ION Resistant Escherichia coli Fosfomycin INTERPRETATION Susceptible us Melly Ribeiro GRADES 1 THRU 6 VISITING TEACHER LAB MICROBIOLOGY - GENERAL ORD ERABLES Final Result [facility] [address] Department [place] [address] * (ABNORMAL) POCT urinalysis dipstick (02/01/2025 2:21 PM CDT) Color, Urine, POC Yellow Clarity, ur, POC Clear Clear Glucose, ur, POC Negative Negative Bilirubin, ur, POC Negative Negative Ketones, ur, POC Negative Negative Specific [place], POC 1.020 1.003 - 1.030 Blood, ur, POC Negative Negative pH, ur, POC 7.0 5.0 - 8.0 Protein, ur, POC Negative Negative Urobilinogen, urine, POC 0.2 0.2 - 1.0 mg/dL Nitrite, ur, POC Negative Negative Leukocytes, ur, POC Trace(A) Negative Lot Number [id number] Urine 02/01/2025 2:21 PM CDT Melly Ribeiro GRADES 1 THRU 6 VISITING TEACHER POINT OF CARE TEST ORDERABLES Final Result from Last 3 Months Additional Health Concerns Infection Onset Date Last 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
--- OUTSIDE RECORDS SUMMARY | 2025-04-07 14:09 | XMS_ITS | Data Portability ---
Author Organization [facility], Main Office Address [address] [place] [address] Assessment No assessment recorded. Plan of Treatment Reminders Order Date Submit Date Provider Last Modified By Organization Details Last Modified Time Details Appointments None recorded. Lab beef IgG AB, quantitativ e, serum 2022 023 [facility], [address], [place], [address], 3 14:29:53 beef ige, serum 2022 023 [facility], [address], [place], [address], 3 14:29:53 milk component panel, serum 2022 023 [facility], [address], [place], [address], 3 14:29:51 rf (rheumatoid factor), serum 2022 023 [email or web address] 4 [facility], [address], [place], [address], 3 12:13:10 lipid panel, serum 2022 023 [facility], [address], [place], [address], 3 18:07:20 CBC w/ auto diff 2022 023 [facility], [address], [place], [address], 3 18:07:21 CMP, serum or plasma 2022 023 [facility], [address], [place], [address], 3 18:07:20 ADIEL (antinuclea r antibodies) panel, serum 2022 023 [facility], [address], [place], [address], 3 18:07:[address] referral 2022 023 [email or web address] 3 [facility], [facility]5 [facility], [place], [address], 3 13:32:54 Procedures None recorded. Surgeries None recorded. Imaging US, gallbladder 2022 023 [facility], [address], [place], [address], 3 09:52:23 XR, thoracic spine, 2 view 2022 023 [facility], [address], [place], [address], 3 16:52:56 XR, cervical spine, 2 or 3 view 2022 023 [email or web address] [address] [facility], [address], [place], [address], 3 15:48:48 Medication Orders naproxen 500 mg tablet 2022 023 [id number], [address] [place], [address], 3 13:08:48 mupirocin 2 % topical ointment 2022 023 [id number], [address] [place], [address], 3 14:47:45 Qulipta 60 mg tablet 2022 023 [email or web address] [facility], [address] , [place], [address], 3 22:02:53 Patient TargetsNo targets recorded. Patient InstructionsNo instructions recorded. Reason for Referral [employer]st Referral for S kin lesion Referring Physician: Nneka Mathur, Internal Medicine, Encounter Date: 08/11/2022 Results Created Date Observation Date Name Description Value Unit Range Abnormal Flag Note LastModifiedBy Organization Detail LastModifiedTime 02/17/20 22 02/21/2022 RPR (DX) W/REF L TITER AND CONFI RMATO RY TESTI NG RPR (DX) w/refl titer and confirmatory testing non-re active non-re active normal Not Available Other Machine [address] [place], [address], 02/21/2022 12:27:17 02/17/20 22 02/21/2022 CHLAM YDIA TRACH OMATI S RNA, TMA, UROGE NITAL chlamydia trachomatis RNA, tma, urogenital not detect ed not detect ed normal Not Available Other Machine [address] [place], [address], 02/21/2022 12:27:17 02/17/20 22 02/21/2022 CHLAM YDIA TRACH OMATI S RNA, TMA, UROGE NITAL comment The frieda tical perfo rmanc e gladys cteri stics of this assay , when used to test SureP ath(T M) speci mens have been deter mined by [facility] jae s. The modif icati ons have not been clear ed or appro bebeto by the FDA. This assay has been valid ated pursu ant to the CLIA regul ation s and is used for clini anna purpo ses. For addit ional infor matio n, pleas e refer to https ://ed ucati on.qu umesh osorio [employer]. com/f aq/FA Q154 (This link is being provi ded for infor matio n/ educa harlan l purpo ses only. ) Not Available Other Machine [facility] [address] [place], [address], 02/21/2022 12:27:17 02/17/20 22 02/21/2022 HIV 1/2 ANTIG EN/AN TIBOD Y,FOU RTH GENER ATION W/RFL HIV Ag/Ab, 4TH gen non-re active non-re active normal HIV-1 antig en and HIV-1 /HIV- 2 antib odies were not detec jacqueline. There is no labor atory evide nce of HIV infec tion. PLEAS E NOTE: This infor matio n has been discl osed to you from recor ds whose confi denti ality may be prote cted by state law. If your state requi res such prote ction , then the state law prohi bits you from diana remy furth er discl osure of the infor matio n witho ut the speci fic writt en conse nt of the perso n to whom it perta ins, or as other vasquez permi tted by law. A gener al autho rizat ion for the relea se of medic al or other infor matio n is NOT suffi cient for this purpo se. For addit ional infor matio n pleas e refer to http: //edu onesimo ware.ilene stdia gnost ics.c om/fa q/FAQ 106 (This link is being provi ded for infor matio nal/ educa harlan l purpo ses only. ) The perfo rmanc e of this assay has not been clini efra valid ated in patie nts less than 2 years old. Not Available [facility] [address] [place], [address], 02/21/2022 12:27:16 02/17/20 22 02/21/2022 HSV 1/2 IGG,T YPE SPECI FIC AB hsv 1 IgG, type specific Ab <0.90 index normal Not Available [facility] [address] [address] [place], [address], 02/21/2022 12:27:15 02/17/20 22 02/21/2022 HSV 1/2 IGG,T YPE SPECI FIC AB hsv 2 IgG, type specific Ab <0.90 index normal Index Inter preta tion ----- ----- ----- ---- <0.90 Negat kory 0.90- 1.09 Equiv ocal >1.09 Posit kory This assay utili zes recom binan t type- speci fic antig ens to diffe renti ate HSV-1 from HSV-2 infec tions . A posit kory resul t canno t disti nguis h betwe en recen t and past infec tion. If recen t HSV infec tion is suspe cted but the resul ts are negat kory or equiv ocal, the assay shoul d be repea jacqueline in 4-6 weeks . The perfo rmanc e gladys cteri stics of the assay have not been estab lishe d for pedia tric popul ation s, immun ocomp romis ed patie nts, or neona benita scree david. For addit ional infor celeste london e refer to http: //nat ware.Que stDia gnost ics.c om/fa q/FAQ 118 (This link is being provi ded for infor nayan bosch/ educa harlan l purpo ses only. ) Not Available [address] [place], [address], 02/21/2022 12:27:15 02/17/20 22 02/21/2022 HEPAT ITIS C AB W/REF L TO HCV RNA, QN, PCR hepatitis C antibody non-re active non-re active normal Not Available [address], [address], 02/21/2022 12:27:14 02/17/20 22 02/21/2022 HEPAT ITIS C AB W/REF L TO HCV RNA, QN, PCR index 0.01 <1.00 normal HCV antib arjun was non-r eacti ve. There is no labor atory evide nce of HCV infec tion. In most cases , no furth er actio n is requi red. Howev er, if recen t HCV expos ure is suspe cted, a test for HCV RNA (test code 42560 ) is sugge sted. For addit ional infor nayan alonso e refer to http: //[facility] onesimo umanzor stdia gnost ics.c om/fa q/FAQ 22v1 (This link is being provi ded for infor nayan bosch/ educa harlan l purpo ses only. ) Not Available [address], [address], 02/21/2022 12:27:14 02/17/20 22 02/21/2022 CBC (INCL UDES DIFF/ PLT) white blood cell count 5.7 thous and/u L 3.8-10 .8 normal Not Available [address], [address], 02/21/2022 12:27:13 02/17/20 22 02/21/2022 CBC (INCL UDES DIFF/ PLT) red blood cell count 4.09 val on/uL 3.80-5 .10 normal Not Available [address], [address], 02/21/2022 12:27:02/17/20 22 02/21/2022 CBC (INCL UDES DIFF/ PLT) hemoglobin 12.6 g/dL 11.7-1 5.5 normal Not Available [address], [address], 02/21/2022 12:27:02/17/20 22 02/21/2022 CBC (INCL UDES DIFF/ PLT) hematocrit 38.1 % 35.0-4 5.0 normal Not Available [address], [address], 02/21/2022 12:27:02/17/20 22 02/21/2022 CBC (INCL UDES DIFF/ PLT) MCV 93.2 fL 80.0-1 00.0 normal Not Available [address], [address], 02/21/2022 12:27:02/17/2002/21/2022 CBC (INCL UDES DIFF/ PLT) MCH 30.8 pg 27.0-3 3.0 normal Not Available [address], [address], 02/21/2022 12:27:02/17/20 22 02/21/2022 CBC (INCL UDES DIFF/ PLT) MCHC 33.1 g/dL 32.0-3 6.0 normal Not Available [address], [address], 02/21/2022 12:27:02/17/20 22 02/21/2022 CBC (INCL UDES DIFF/ PLT) RDW 12.1 % 11.0-1 5.0 normal Not Available [address], [address], 02/21/2022 12:27:02/17/2002/21/2022 CBC (INCL UDES DIFF/ PLT) platelet count 267 thous and/u L 140-40 0 normal Not Available [address], [address], 02/21/2022 12:27:02/17/2002/21/2022 CBC (INCL UDES DIFF/ PLT) MPV 9.5 fL 7.5-12 .5 normal Not Available [address], [address], 02/21/2022 12:27:13 02/17/20 22 02/21/2022 CBC (INCL UDES DIFF/ PLT) absolute neutrophils 2884 cells /uL 1500-7 800 normal Not Available [address], [address], 02/21/2022 12:27:13 02/17/20 22 02/21/2022 CBC (INCL UDES DIFF/ PLT) absolute lymphocytes 2012 cells /uL 850-39 00 normal Not Available [address], [address], 02/21/2022 12:27:13 02/17/20 22 02/21/2022 CBC (INCL UDES DIFF/ PLT) absolute monocytes 479 cells /uL 200-95 0 normal Not Available [address], [address], 02/21/2022 12:27:13 02/17/20 22 02/21/2022 CBC (INCL UDES DIFF/ PLT) absolute eosinophils 268 cells /uL 15-500 normal Not Available [address], [address], 02/21/2022 12:27:13 02/17/20 22 02/21/2022 CBC (INCL UDES DIFF/ PLT) absolute basophils 57 cells /uL 0-200 normal Not Available [facility] [address], [address], 02/21/2022 12:27:13 02/17/2002/21/2022 CBC (INCL UDES DIFF/ PLT) neutrophils 50.6 % normal Not Available [address], [address], 02/21/2022 12:27:13 02/17/20 22 02/21/2022 CBC (INCL UDES DIFF/ PLT) lymphocytes 35.3 % normal Not Available [facility] [address] [address] [place], [address], 02/21/2022 12:27:13 02/17/20 22 02/21/2022 CBC (INCL UDES DIFF/ PLT) monocytes 8.4 % normal Not Available [facility] [address] [address] [place], [address], 02/21/2022 12:27:13 02/17/20 22 02/21/2022 CBC (INCL UDES DIFF/ PLT) eosinophils 4.7 % normal Not Available [facility] [address], [address], 02/21/2022 12:27:13 02/17/20 22 02/21/2022 CBC (INCL UDES DIFF/ PLT) basophils 1.0 % normal Not Available [facility] [address], [address], 02/21/2022 12:27:13 02/17/2002/21/2022 HEMOG LOBIN A1C hemoglobin A1C 5.0 %_of_ total _HGB <5.7 normal For the purpo se of moses hernandez for the prese nce of diabe fredis: <5.7% Consi stent with the absen ce of diabe fredis 5.7-6 .4% Consi stent with incre ased risk for diabe fredis (pred iabet es) > or =6.5% Consi stent with diabe fredis This assay resul t is consi stent with a decre ased risk of diabe fredis. Curre ntly, no conse nsus exist s quinten blackwell use of hemog lobin A1c for diagn osis of diabe fredis in child jennifer. Accor ding to Ameri can Diabe fredis Assoc iatio n (ADA) guide lines , hemog lobin A1c <7.0% repre sents optim al contr ol in non-p regna nt diabe tic patie nts. Diffe rent metri cs may apply to speci fic patie nt popul ation s. Stand ards of Medic al Care in Diabe fredis(A DA). Not Available [address] [address] [place], [address], 02/21/2022 12:27:13 02/17/20 22 02/21/2022 COMPR EHENS KORY METAB OLIC PANEL creatinine 0.77 mg/dL 0.50-0 .96 normal Not Available [address], [address], 02/21/2022 12:27:12 02/17/20 22 02/21/2022 COMPR EHENS KORY METAB OLIC PANEL glucose 89 mg/dL 65-99 normal Fasti ng refer ence inter meli Not Available [address], [address], 02/21/2022 12:27:12 02/17/20 22 02/21/2022 COMPR EHENS KORY METAB OLIC PANEL urea nitrogen (BUN) 10 mg/dL 7-25 normal Not Available [address], [address], 02/21/2022 12:27:12 02/17/20 22 02/21/2022 COMPR EHENS KORY METAB OLIC PANEL eGFR 107 mL/mi n/1.7 3m2 > or = 60 normal The eGFR is based on the CKD-E PI 2020 equat ion. To calcu late the new eGFR from a previ ous Creat inine or Cysta tin C resul t, go to https ://ww w.kid willie.o viviana/anthony schwarz s/ kdoqi /gfr% 5Fcal culat or Not Available [address], [address], 02/21/2022 12:27:12 02/17/20 22 02/21/2022 COMPR EHENS KORY METAB OLIC PANEL BUN/creatini ne ratio not applic able (calc ) 6-22 Not Available [address] [place], [address], 02/21/2022 12:27:12 02/17/20 22 02/21/2022 COMPR EHENS KORY METAB OLIC PANEL sodium 138 mmol/ L 135-14 6 normal Not Available [address], [address], 02/21/2022 12:27:12 02/17/20 22 02/21/2022 COMPR EHENS KORY METAB OLIC PANEL potassium 4.0 mmol/ L 3.5-5. 3 normal Not Available [address], [address], 02/21/2022 12:27:12 02/17/20 22 02/21/2022 COMPR EHENS KORY METAB OLIC PANEL chloride 105 mmol/ L 98-110 normal Not Available [address], [address], 02/21/2022 12:27:12 02/17/20 22 02/21/2022 COMPR EHENS KORY METAB OLIC PANEL carbon dioxide 28 mmol/ L 20-32 normal Not Available [address], [address], 02/21/2022 12:27:12 02/17/20 22 02/21/2022 COMPR EHENS KORY METAB OLIC PANEL calcium 9.0 mg/dL 8.6-10 .2 normal Not Available [address], [address], 02/21/2022 12:27:12 02/17/20 22 02/21/2022 COMPR EHENS KORY METAB OLIC PANEL albumin/glob ulin ratio 1.7 (calc ) 1.0-2. 5 normal Not Available [address], [address], 02/21/2022 12:27:12 02/17/20 22 02/21/2022 COMPR EHENS KORY METAB OLIC PANEL protein, total 6.7 g/dL 6.1-8. 1 normal Not Available [address], [address], 02/21/2022 12:27:12 02/17/20 22 02/21/2022 COMPR EHENS KORY METAB OLIC PANEL albumin 4.2 g/dL 3.6-5. 1 normal Not Available [address], [address], 02/21/2022 12:27:12 02/17/20 22 02/21/2022 COMPR EHENS KORY METAB OLIC PANEL globulin 2.5 g/dL_ (calc ) 1.9-3. 7 normal Not Available [address], [address], 02/21/2022 12:27:12 02/17/20 22 02/21/2022 COMPR EHENS KORY METAB OLIC PANEL bilirubin, total 0.5 mg/dL 0.2-1. 2 normal Not Available [address], [address], 02/21/2022 12:27:12 02/17/20 22 02/21/2022 COMPR EHENS KORY METAB OLIC PANEL alkaline phosphatase 46 U/L 31-125 normal Not Available [address], [address], 02/21/2022 12:27:12 02/17/20 22 02/21/2022 COMPR EHENS KORY METAB OLIC PANEL AST 19 U/L 10-30 normal Not Available [address], [address], 02/21/2022 12:27:12 02/17/20 22 02/21/2022 COMPR EHENS KORY METAB OLIC PANEL ALT 19 U/L 6-29 normal Not Available [address], [address], 02/21/2022 12:27:12 02/17/20 22 02/21/2022 TSH+F REE T4 TSH 0.94 mIU/L normal Refer ence Range > or = 20 Years 0.40- 4.50 Pregn tere Range s First trime ster 0.26- 2.66 Secon d trime ster 0.55- 2.73 Third trime ster 0.43- 2.91 Not Available [address] [place], [address], 02/21/2022 12:27:11 02/17/20 22 02/21/2022 TSH+F REE T4 T4, free 1.2 NG/dL 0.8-1. 8 normal Not Available [address] , [place], [address], 02/21/2022 12:27:11 08/16/19 23 08/22/2022 ANACH OICE( R) PANEL 1 WITH REFLE XES anachoice(R) screen NEGATI VE negati ve A negat kory ANAch oice( TM) indic ates the absen ce of detec table antib odies to compo nent frieda fredis consi sting of dsDNA , Chrom atin, JET MECHANIC, Sm/RN P, Sm, SSA, SSB, Shari-1, Centr omere B, Scl-7 0 and Ribos omal P. A negat kory ANAch oice( TM) shoul d be inter prete d in the nick xt of the clini anna and labor atory findi ngs, and does not rule out autoi mmune disea se gladys cteri zed by other autoa ntibo dy speci ficit ies inclu ding autoi mmune hepat itis and prima ry bilia ry cirrh osis. For addit ional celeste austin e refer to http: //[facility] onesimo ware.Que stDia gnost ics.c om/fa q/FAQ 177 (This link is being provi ded for infor nayan ware/[facility] onesimo bosch purpo ses only. ) Not Available [address], [address], 08/22/2022 18:07:18 08/16/19 23 08/22/2022 ANACH OICE( R) PANEL 1 WITH REFLE XES rheumatoid factor <14 IU/mL <14 Not Available [address], [address], 08/22/2022 18:07:18 08/16/19 23 08/22/2022 ANACH OICE( R) PANEL 1 WITH REFLE XES DNA Ab (ds) crithidia,if a NEGATI VE negati ve Not Available [address], [address], 08/22/2022 18:07:18 08/16/19 23 08/22/2022 ANACH OICE( R) PANEL 1 WITH REFLE XES sm antibody <1.0 NEG ai <1.0 negati ve Not Available [address], [address], 08/22/2022 18:07:18 08/16/19 23 08/22/2022 ANACH OICE( R) PANEL 1 WITH REFLE XES sm/tobacco packer antibody <1.0 NEG ai <1.0 negati ve Not Available [address], [address], 08/22/2022 18:07:18 08/16/19 23 08/22/2022 ANACH OICE( R) PANEL 1 WITH REFLE XES sjogren's antibody (ss-A) <1.0 NEG ai <1.0 negati ve Not Available [address], [address], 08/22/2022 18:07:18 08/16/19 23 08/22/2022 ANACH OICE( R) PANEL 1 WITH REFLE XES sjogren's antibody (ss-B) <1.0 NEG ai <1.0 negati ve Not Available [address], [address], 08/22/2022 18:07:18 08/16/19 23 08/22/2022 ANACH OICE( R) PANEL 1 WITH REFLE XES scl-70 antibody <1.0 NEG ai <1.0 negati ve Not Available [address], [address], 08/22/2022 18:07:18 08/16/19 23 08/22/2022 LIPID PANEL WITH RATIO S cholesterol, total 196 mg/dL <200 normal Not Available [address], [address], 08/22/2022 18:07:20 08/16/19 23 08/22/2022 LIPID PANEL WITH RATIO S HDL cholesterol 54 mg/dL > or = 50 normal Not Available [address], [address], 08/22/2022 18:07:20 08/16/19 23 08/22/2022 LIPID PANEL WITH RATIO S triglyceride s 107 mg/dL <150 normal Not Available [address], [address], 08/22/2022 18:07:20 08/16/19 23 08/22/2022 LIPID PANEL WITH RATIO S LDL-choleste rol 121 mg/dL _(anna c) high Refer ence range : <100 Noel able range <100 mg/dL for prima ry preve ntion ; <70 mg/dL for patie nts with CHD or diabe tic patie nts with > or = 2 CHD risk facto rs. LDL-C is now calcu lated using the Ashley n-Hop kins calcu latodin n, which is a valid ated novel metho d provi ding john r accur acy than the Fried ilene equat ion in the estim ation of LDL-C . Ashley ware SS et al. EVONNE. 2013; 310(1 9): 2061- 2068 (http ://ed ucati on.BIlprospekt Umesh thomas3C Plus. com/f aq/FA Q164) Not Available [address], [address], 08/22/2022 18:07:20 08/16/19 23 08/22/2022 LIPID PANEL WITH RATIO S chol/HDLC ratio 3.6 (calc ) <5.0 normal Not Available [address], [address], 08/22/2022 18:07:20 08/16/1908/22/2022 LIPID PANEL WITH RATIO S LDL/HDL ratio 2.2 (calc ) Below avera ge Risk: <2.34 [place] ge Risk: 2.35- 4.12 Moder ate Risk: 4.13- 5.56 High Risk: >5.57 Not Available [address], [address], 08/22/2022 18:07:20 08/16/19 23 08/22/2022 LIPID PANEL WITH RATIO S non HDL cholesterol 142 mg/dL _(anna c) <130 high For patie nts with diabe fredis plus 1 major ASCVD risk facto r, treat ing to a non-H DL-C goal of <100 mg/dL (LDL- C of <70 mg/dL ) is consi ana lilia a venkat peroseline c optio n. Not Available [address], [address], 08/22/2022 18:07:20 08/16/19 23 08/22/2022 COMPR EHENS KORY METAB OLIC PANEL glucose 95 mg/dL 65-99 normal Fasti ng refer ence inter meli Not Available [address], [address], 08/22/2022 18:07:20 08/16/19 23 08/22/2022 COMPR EHENS KORY METAB OLIC PANEL urea nitrogen (BUN) 15 mg/dL 7-25 normal Not Available [address], [address], 08/22/2022 18:07:20 08/16/19 23 08/22/2022 COMPR EHENS KORY METAB OLIC PANEL creatinine 0.71 mg/dL 0.50-0 .97 normal Not Available [address], [address], 08/22/2022 18:07:20 08/16/19 23 08/22/2022 COMPR EHENS KORY METAB OLIC PANEL eGFR 117 mL/mi n/1.7 3m2 > or = 60 normal The eGFR is based on the CKD-E PI 2020 equat ion. To calcu late the new eGFR from a previ ous Creat inine or Cysta tin C resul t, go to https ://cristina tapia.lico michelle/anthony schwarz s/ kdoqi /gfr% 5Fcal culat or Not Available [address] [place], [address], 08/22/2022 18:07:20 08/16/19 23 08/22/2022 COMPR EHENS KORY METAB OLIC PANEL BUN/creatini ne ratio NOT APPLIC ABLE (calc ) 6-22 Not Available [address], [address], 08/22/2022 18:07:20 08/16/19 23 08/22/2022 COMPR EHENS KORY METAB OLIC PANEL sodium 139 mmol/ L 135-14 6 normal Not Available [address], [address], 08/22/2022 18:07:20 08/16/19 23 08/22/2022 COMPR EHENS KORY METAB OLIC PANEL potassium 4.2 mmol/ L 3.5-5. 3 normal Not Available [address], [address], 08/22/2022 18:07:20 08/16/19 23 08/22/2022 COMPR EHENS KORY METAB OLIC PANEL chloride 104 mmol/ L 98-110 normal Not Available [address], [address], 08/22/2022 18:07:20 08/16/19 23 08/22/2022 COMPR EHENS KORY METAB OLIC PANEL carbon dioxide 29 mmol/ L 20-32 normal Not Available [address], [address], 08/22/2022 18:07:20 08/16/19 23 08/22/2022 COMPR EHENS KORY METAB OLIC PANEL calcium 9.3 mg/dL 8.6-10 .2 normal Not Available [address], [address], 08/22/2022 18:07:20 08/16/19 23 08/22/2022 COMPR EHENS KORY METAB OLIC PANEL protein, total 6.8 g/dL 6.1-8. 1 normal Not Available [address], [address], 08/22/2022 18:07:20 08/16/19 23 08/22/2022 COMPR EHENS KORY METAB OLIC PANEL albumin 4.2 g/dL 3.6-5. 1 normal Not Available [address], [address], 08/22/2022 18:07:20 08/16/19 23 08/22/2022 COMPR EHENS KORY METAB OLIC PANEL globulin 2.6 g/dL_ (calc ) 1.9-3. 7 normal Not Available [address], [address], 08/22/2022 18:07:20 08/16/19 23 08/22/2022 COMPR EHENS KORY METAB OLIC PANEL albumin/glob ulin ratio 1.6 (calc ) 1.0-2. 5 normal Not Available [address], [address], 08/22/2022 18:07:20 08/16/19 23 08/22/2022 COMPR EHENS KORY METAB OLIC PANEL bilirubin, total 0.7 mg/dL 0.2-1. 2 normal Not Available [address], [address], 08/22/2022 18:07:20 08/16/19 23 08/22/2022 COMPR EHENS KORY METAB OLIC PANEL alkaline phosphatase 46 U/L 31-125 normal Not Available [address], [address], 08/22/2022 18:07:20 08/16/19 23 08/22/2022 COMPR EHENS KORY METAB OLIC PANEL AST 13 U/L 10-30 normal Not Available [address], [address], 08/22/2022 18:07:20 08/16/19 23 08/22/2022 COMPR EHENS KORY METAB OLIC PANEL ALT 11 U/L 6-29 normal Not Available [address], [address], 08/22/2022 18:07:20 08/16/19 23 08/22/2022 CBC (INCL UDES DIFF/ PLT) white blood cell count 6.7 thous and/u L 3.8-10 .8 normal Not Available [address], [address], 08/22/2022 18:07:21 08/16/19 23 08/22/2022 CBC (INCL UDES DIFF/ PLT) red blood cell count 4.32 val on/uL 3.80-5 .10 normal Not Available [address], [address], 08/22/2022 18:07:21 08/16/19 23 08/22/2022 CBC (INCL UDES DIFF/ PLT) hemoglobin 13.2 g/dL 11.7-1 5.5 normal Not Available [address], [address], 08/22/2022 18:07:21 08/16/19 23 08/22/2022 CBC (INCL UDES DIFF/ PLT) hematocrit 40.1 % 35.0-4 5.0 normal Not Available [address], [address], 08/22/2022 18:07:21 08/16/19 23 08/22/2022 CBC (INCL UDES DIFF/ PLT) MCV 92.8 fL 80.0-1 00.0 normal Not Available [address], [address], 08/22/2022 18:07:21 08/16/19 23 08/22/2022 CBC (INCL UDES DIFF/ PLT) MCH 30.6 pg 27.0-3 3.0 normal Not Available [address], [address], 08/22/2022 18:07:21 08/16/19 23 08/22/2022 CBC (INCL UDES DIFF/ PLT) MCHC 32.9 g/dL 32.0-3 6.0 normal Not Available [address], [address], 08/22/2022 18:07:21 08/16/19 23 08/22/2022 CBC (INCL UDES DIFF/ PLT) RDW 12.2 % 11.0-1 5.0 normal Not Available [address], [address], 08/22/2022 18:07:21 08/16/19 23 08/22/2022 CBC (INCL UDES DIFF/ PLT) platelet count 310 thous and/u L 140-40 0 normal Not Available [address], [address], 08/22/2022 18:07:21 08/16/19 23 08/22/2022 CBC (INCL UDES DIFF/ PLT) MPV 9.3 fL 7.5-12 .5 normal Not Available [address], [address], 08/22/2022 18:07:21 08/16/19 23 08/22/2022 CBC (INCL UDES DIFF/ PLT) absolute neutrophils 3826 cells /uL 1500-7 800 normal Not Available [address], [address], 08/22/2022 18:07:21 08/16/19 23 08/22/2022 CBC (INCL UDES DIFF/ PLT) absolute lymphocytes 2291 cells /uL 850-39 00 normal Not Available [address], [address], 08/22/2022 18:07:21 08/16/19 23 08/22/2022 CBC (INCL UDES DIFF/ PLT) absolute monocytes 415 cells /uL 200-95 0 normal Not Available [address], [address], 08/22/2022 18:07:21 08/16/19 23 08/22/2022 CBC (INCL UDES DIFF/ PLT) absolute eosinophils 127 cells /uL 15-500 normal Not Available [address], [address], 08/22/2022 18:07:21 08/16/19 23 08/22/2022 CBC (INCL UDES DIFF/ PLT) absolute basophils 40 cells /uL 0-200 normal Not Available [address], [address], 08/22/2022 18:07:21 08/16/19 23 08/22/2022 CBC (INCL UDES DIFF/ PLT) neutrophils 57.1 % normal Not Available [address], [address], 08/22/2022 18:07:21 08/16/19 23 08/22/2022 CBC (INCL UDES DIFF/ PLT) lymphocytes 34.2 % normal Not Available [facility] [address], [address], 08/22/2022 18:07:21 08/16/19 23 08/22/2022 CBC (INCL UDES DIFF/ PLT) monocytes 6.2 % normal Not Available [address], [address], 08/22/2022 18:07:21 08/16/19 23 08/22/2022 CBC (INCL UDES DIFF/ PLT) eosinophils 1.9 % normal Not Available [address], [address], 08/22/2022 18:07:21 08/16/19 23 08/22/2022 CBC (INCL UDES DIFF/ PLT) basophils 0.6 % normal Not Available [address], [address], 08/22/2022 18:07:21 02/22/20 23 02/24/2023 MILK COMPO NENT PANEL alpha-lactal bumin (F76) IgE <0.10 kU/L normal Not Available [facility] [address], [address], 02/24/2023 14:29:51 02/22/20 23 02/24/2023 MILK COMPO NENT PANEL class 0 Not Available [address], [address], 02/24/2023 14:29:51 02/22/20 23 02/24/2023 MILK COMPO NENT PANEL beta-lactogl obulin (F77) IgE <0.10 kU/L normal Not Available [address] [address] [place], [address], 02/24/2023 14:29:51 02/22/20 23 02/24/2023 MILK COMPO NENT PANEL class 0 Not Available [address] [address] [place], [address], 02/24/2023 14:29:51 02/22/20 23 02/24/2023 MILK COMPO NENT PANEL casein (F78) IgE <0.10 kU/L normal Not Available [address] [address] [place], [address], 02/24/2023 14:29:51 02/22/20 23 02/24/2023 MILK COMPO NENT PANEL class 0 IgE react ivity to whole milk witho ut react ivity to Pelon d 4, Pelon d 5, or Pelon d 8, may be expla ined by IgE react ivity to other cow's milk prote ins or non-p rotei n milk const ituen ts. Addit ional infor nayan ware can be found at http: //www .phad ia.co m Not Available [address] [address] [place], [address], 02/24/2023 14:29:51 02/22/20 23 02/24/2023 INTER PRETA TION interpretati on Speci fic Level of Aller gen IGE Class kU/L Speci fic IGE Antib arjun ----- ----- ---- ----- ----- ----- ---- 0 <0.10 Absen t/Und etect able 0/1 0.10- 0.34 Very Low Level 1 0.35- 0.69 Low Level 2 0.70- 3.49 Moder ate Level 3 3.50- 17.4 High Level 4 17.5- 49.9 Very High Level 5 50-10 0 Very High Level 6 >100 Very High Level The clini anna relev ance of aller gen resul ts of 0.10- 0.34 kU/L are undet ermin ed and inten ded for speci alist use. Aller gens denot ed with a inclu de resul ts using one or more frieda te speci fic reage nts. In those cases , the test was devel oped and its frieda tical perfo rmanc e gladys cteri stics have been deter mined by [employer]. It has not been clear ed or appro bebeto by the U.S. Food and Drug Admin istra tion. This assay has been valid ated pursu ant to the CLIA regul ation s and is used for clini anna purpo ses. Not Available [facility] [address] [address] [place], [address], 02/24/2023 14:29:52 02/22/20 23 02/24/2023 BEEF (F27) IGE beef (F27) IgE <0.10 kU/L normal Not Available [facility] [address] [address] [place], [address], 02/24/2023 14:29:53 02/22/20 23 02/24/2023 BEEF (F27) IGE class 0 Not Available [facility] [address] [address] [place], [address], 02/24/2023 14:29:53 02/22/20 23 02/24/2023 BEEF (F27) IGG beef (F27) IgG 10.7 mcg/m L <2.0 high This test was perfo rmed using a kit that has not been clear ed or appro bebeto by the FDA. The frieda tical perfo rmanc e gladys cteri stics of this test have been deter mined by [employer]. This test, and any food speci fic aller gen IgG resul t, shoul d not be used for the diagn osis of aller gic or atopi c disea se state s (exce pt for sensi tivit y to milk in neona fredis and glute n sensi tivit y). The use of food speci fic aller gen IgG resul ts shoul d be restr icted to the asses sment of respo nse to thera peuti c inter venti ons. Not Available [facility] [address], [place], [address], 02/24/2023 14:29:53 12/27/19 23 08/14/2022 XR, thora cic spine , 2 view No observ ation record ed. [email or web address] [facility] [address], [place], [address], 01/25/2023 09:56:41 02/24/20 23 02/23/2023 US, cristofer carlson r No observ ation record ed. [email or web address] [facility] [address], [place], [address], 02/26/2023 15:02:52 03/06/20 23 03/06/2023 CT, liver , w/wo contr ast No observ ation record ed. [email or web address] [facility] [address] [place], [address], 03/12/2023 09:52:03 Result Notes None recorded. Problems Name Problem SNOMED Code Status Onset Date Resolution Date Notes Provider Name and Address Organization Details Recorded Time Anxiety 66093828 Active 2019 Not Available [facility] 3 09:54:21 Generalized anxiety disorder 94688479 Active 2021 Not Available [facility] 3 09:54:21 Adult health examination Active 2021 Not Available [facility] 3 09:54:21 Occipital headache 884029 Active 2021 Not Available [facility] 3 09:54:21 Migraine 02593968 Active 2021 Not Available [facility] 3 09:54:21 Long-term drug therapy Active 2021 Not Available [facility] 3 09:54:21 Candidiasis of vagina 71888341 Active 2021 Not Available [facility] 3 09:54:21 Bacterial vaginosis 979658667 Active 2021 Not Available [facility] 3 09:54:21 White vaginal discharge 205730788 Active 2021 Not Available [facility] 3 09:54:21 Pain in cervical spine 625502822 Active 2022 Not Available [facility] 3 09:54:21 Pain in thoracic spine 602594983 Active 2022 Not Available [facility] 3 09:54:21 Skin lesion 73769021 Active 2022 Not Available [facility] 3 09:54:21 Nipple infection 169376447 Active 2022 Not Available [facility] 3 09:54:21 Bacterial conjunctiviti s 743589277 Active 2022 Not Available [facility] 3 09:54:21 Contusion of nose 59525547 Active 2022 Not Available [facility] 3 09:54:21 Diarrhea 79908131 Active 2022 Not Available [facility] 3 09:54:21 Right upper quadrant pain 937435044 Active 2022 Not Available [facility] 3 09:54:21 Hemangioma of liver 95838621 Active 2022 Not Available [facility] 3 09:54:21 Notes:01/19/22 Covid positive Problem Notes None recorded. Procedures Surgical History Date Name Laterality Status Provider Name and Address Organization Details Recorded Time 1 ENDS DOWN CHECKER Procedure completed Not Available [facility] 2022 00:52:48 1 Date of Last Pap Smear completed Not Available [facility] 08/09/2022 00:52:40 0 ENDS DOWN CHECKER Procedure completed Not Available [facility] 2022 00:52:48 Imaging Results None recorded. Procedure Notes None recorded. Medical Equipment None Reported. Allergies Allergen ID Allergen Name Allergen Category Reaction Reaction Severity Criticality Documentation Date Start Date Code Code System Note Provider Name and Address Organization Details Recorded Time 2143 Diflucan medicatio n Not available Not available Not available 08/09/2022 3 RxNorm rash Not Available [facility] 3 01:22:38 Medications Name Sig Start Date Stop Date Status Note LastModified by Organization Details LastModified Time cyclobenz aprine 10 mg tablet PRN 10/18 completed Not Available Not Available Not Available Augmentin 875 mg-125 mg tablet Take 1 tablet every 12 hours by oral route. active Not Available Not Available No t Available azithromy nito 250 mg tablet TAKE 2 TABLETS BY MOUTH TODAY, THEN TAKE 1 TABLET DAILY FOR 4 DAYS 08/10 completed Not Available Not Available Not Available fluconazo le 150 mg tablet TAKE 1 TAB ORALLY EVERY 72 HOURS FOR 3 DOSES, THEN CONTINUE TAKING 1 TAB WEEKLY FOR 6 MONTHS active Not Available Not Available No t Available benzonata te 200 mg capsule Take 1 capsule 3 times a day by oral route as needed. 11/15 completed Not Available Not Available Not Available hydrocodo ne 5 mg-acetam inophen 325 mg tablet 07/07 completed Not Available Not Available Not Available meloxicam 15 mg tablet 06/18 completed Not Available Not Available Not Available phenazopy ridine 200 mg tablet 11/17 completed Not Available Not Available Not Available metronida zole 0.75 % (37.5 mg/5 gram) vaginal gel INSERT 1 APPLICAT OR FULL BY VAGINAL ROUTE 1 NIGHT PER WEEK FOR 6 MONTHS active Not Available Not Available No t Available famotidin e 40 mg tablet TAKE 1 TABLET BY MOUTH TWICE DAILY FOR 30 DAYS active Not Available Not Available No t Available prednison e 20 mg tablet TAKE 2 TABLETS BY ORAL ROUTE ONCE DAILY FOR 5 DAYS TAKE WITH FOOD 08/10 completed Not Available Not Available Not Available terconazo le 0.8 % vaginal cream Insert 1 applicat orful every day by vaginal route as directed for 5 days. active Not Available Not Available No t Available metronida zole 500 mg tablet TAKE 1 TABLET BY MOUTH EVERY 12 HOURS 11/17 completed Not Available Not Available Not Available phentermi ne 37.5 mg tablet TAKE 1 TABLET BY MOUTH EVERY DAY 11/09 completed Reports having 5 tabs left and does not take all the time. Not Available Not Available Not Available valacyclo vir 500 mg tablet Take 1 tablet twice a day by oral route for 7 days. active Not Available Not Available No t Available ciproflox acin 500 mg tablet 08/10 completed Not Available Not Available Not Available sulfameth oxazole 800 mg-trimet hoprim 160 mg tablet TAKE 1 TABLET BY MOUTH EVERY 12 HOURS active Not Available Not Available No t Available triamcino lone acetonide 0.1 % topical cream APPLY THIN COAT TO AFFECTED AREA TWICE A DAY active Not Available Not Available No t Available ceftriaxo ne 1 gram solution for injection Take 1 g by injectio n route. 01/02 completed [facility]#[phone] 1 Not Available Not Available Not Available amoxicill in 875 mg tablet Take 1 tablet every 12 hours by oral route. 11/15 completed Not Available Not Available Not Available lorazepam 0.5 mg tablet TAKE 1 TABLET BY MOUTH EVERY 8 HOURS NEEDED active Not Available Not Available No t Available benzonata te 100 mg capsule 08/27 completed Not Available Not Available Not Available triamcino lone acetonide 40 mg/mL suspensio n for injection 80 mg injectio n today 03/24 completed [facility]: [address]-41 [address]-01 Not Available Not Available Not Available esomepraz ole magnesium 40 mg capsule,d elayed release TAKE 1 CAPSULE BY MOUTH TWICE A DAY active Not Available Not Available No t Available neomycin- polymyxin -dexameth 3.5 mg/mL-10, 000 unit/mL-0 .1% eye drops INSTILL 1 DROP IN EACH EYE TWICE A DAY *SHAKE WELL BEFORE USE* active Not Available Not Available No t Available olopatadi ne 0.1 % eye drops 07/07 completed Not Available Not Available Not Available prednison e 50 mg tablet TAKE 2 TABLETS BY MOUTH EVERY DAY FOR 5 DAYS active Not Available Not Available No t Available polymyxin B sulfate 10,000 unit-trim ethoprim 1 mg/mL eye drops INSTILL 1 DROP INTO AFFECTED EYE(S) BY OPHTHALM IC ROUTE EVERY 6 HOURS x 3 days 2022 active Not Available Not Available Not Avai lable monteluka st 10 mg tablet TAKE 1 TABLET BY MOUTH EVERY DAY IN THE EVENING active Not Available Not Available No t Available codeine 10 mg-guaife nesin 100 mg/5 mL oral liquid Take 10 mL as needed by oral route at bedtime. 07/07 completed Not Available Not Available Not Available mupirocin 2 % topical ointment APPLY A SMALL AMOUNT TO THE BREAST AREA BY TOPICAL ROUTE 2-3 TIMES PER DAY active Not Available Not Available No t Available epinephri ne 0.3 mg/0.3 mL injection , auto-inje ctor INJECT NEEDED FOR ANAPHYLA XIS. IF USED, PROCEED TO ER active Not Available Not Available No t Available Tylenol-C odeine #3 300 mg-30 mg tablet Take 1 tablet every 6 hours by oral route as needed. 07/05 completed Not Available Not Available Not Available ibuprofen 600 mg tablet PRN 03/26 completed Not Available Not Available Not Available naproxen 500 mg tablet TAKE 1 TABLET BY MOUTH TWICE A DAY WITH MEALS active Not Available Not Available No t Available amoxicill in 500 mg-potass ium clavulana te 125 mg tablet TAKE 1 TABLET BY MOUTH 3 TIMES A DAY UNTIL FINISHED 02/22 completed Not Available Not Available Not Available escitalop stacy 10 mg tablet TAKE 1 TABLET BY MOUTH EVERY DAY IN THE EVENING 08/11 completed Not Available Not Available Not Available metronida zole 1 % topical gel APPLY TOPICALL Y ONCE WEEKLY active Not Available Not Available No t Available L norgest/E estradiol -E estrad 0.15 mg-30 mcg (84)/10 mcg(7) tabs,3mos TAKE 1 TABLET BY MOUTH EVERY DAY active Not Available Not Available No t Available ProAir HFA 90 mcg/actua tion aerosol inhaler INHALE 2 PUFFS EVERY 6 HOURS NEEDED FOR WHEEZING active Not Available Not Available No t Available Alejandra 14 mcg/24 hr (up to 3 years) 13.5 mg intrauter ine device Take by intraute rine route. 10/02 completed Not Available Not Available Not Available Fioricet 50 mg-300 mg-40 mg capsule Take 1 capsule every 6-8 hours by oral route as needed. active Not Available Not Available No t Available Qulipta 60 mg tablet Take 1 tablet every day by oral route as directed . 2022 active Not Available Not Available Not Avai lable Vitals Date Recorded Body mass index (BMI) Provider Name and Address Organization Details Last Updated DateTime 08/11/2022 25.8 kg/m2 BERNADETTE Barrios [address] [facility], [facility] [address], [place], [address], [facility] 08/13/2022 22:09:13 Date Recorded Body height Body temperature Body weight Heart rate Oxygen saturation Oxygen saturation in Arterial blood by Pulse oximetry Systolic And Diastolic Provider Name and Address Organization Details Last Updated DateTime 3 165.1 cm 97.5 [degF] 34728.8 2 g 87 /min 98 % 98 % 114/70 mm[Hg] Clarible Rodriguez, SRAVAN [facility] 3 15:02:37 Date Recorded Body height Body weight Body temperature Heart rate Oxygen saturation Oxygen saturation in Arterial blood by Pulse oximetry Systolic And Diastolic Provider Name and Address Organization Details Last Updated DateTime 3 165.1 cm 25513.5 9 g 97.7 [degF] 70 /min 99 % 99 % 112/70 mm[Hg] Claribel Rodriguez, SRAVAN [facility] 3 14:25:43 Date Recorded Body mass index (BMI) Provider Name and Address Organization Details Last Updated DateTime 01/23/2023 26.3 kg/m2 BERNADETTE Barrios [address] [facility], [facility] [address], [place], [address], [place] [employer] [facility] 02/08/2023 22:12:35 Date Recorded Body height Body weight Body temperature Heart rate Oxygen saturation Oxygen saturation in Arterial blood by Pulse oximetry Systolic And Diastolic Provider Name and Address Organization Details Last Updated DateTime 3 165.1 cm 27821.5 9 g 97.8 [degF] 72 /min 99 % 99 % 114/72 mm[Hg] Claribel Rodriguez RN [facility] 3 12:51:39 Date Recorded Body mass index (BMI) Body height Oxygen saturation Oxygen saturation in Arterial blood by Pulse oximetry Heart rate Respiratory rate Body temperature Body weight Systolic And Diastolic Provider Name and Address Organization Details Last Updated DateTime 2 24.7 kg/m2 165.1 cm 98 % 98 % 82 /min 16 /min 97.9 [degF] 92032.3 9 g 118/72 mm[Hg] Not Available [facility] 3 00:56:04 Date Recorded Body mass index (BMI) Provider Name and Address Organization Details Last Updated DateTime 02/20/2023 26 kg/m2 BERNADETTE Barrios [address], [facility] [address], [place], [address], [place] [employer] [facility] 03/09/2023 23:29:41 Date Recorded Body height Body weight Body temperature Heart rate Oxygen saturation Oxygen saturation in Arterial blood by Pulse oximetry Systolic And Diastolic Provider Name and Address Organization Details Last Updated DateTime 3 165.1 cm 08155.4 1 g 97.3 [degF] 74 /min 99 % 99 % 118/76 mm[Hg] Claribel Rodriguez RN [facility] 14:56:43 Social History Question Answer Notes LastModified by Organizat ion Details LastModified Time Tobacco Smoking Status Never Smoker VERONICA Joy, [place] [employer] [facility] 01/23/2023 12:30:58 Do You Have An Advance Directive? No [id number] Information not available 08/09/2022 What Is Your Level Of Caffeine Consumption? Moderate [id number] Information not available 08/09/2022 In The 14 Days Before Symptom Onset, Have You Had Close Contact With A Laboratory-confirm ed COVID-19 While That Case Was Ill? No Information n ot available 01/23/2023 In The 14 Days Before Symptom Onset, Have You Had Close Contact With A Person Who Is Under Investigation For COVID-19 While That Person Was Ill? No Information not available 01/23/2023 What Type Of Diet Are You Following? REGULAR [id number] Information not available 08/09/2022 Which Illicit Or Recreational Drugs Have You Used? None Information not available 01/23/2023 Have There Been Any Changes To Your Family Or Social Situation? No Information no t available 01/23/2023 Are There Any Guns Present In Your Home? No Information not available 01/23/2023 Do You Use Insect Repellent Routinely? No Information not available 01/23/2023 Do You Have A Medical Power Of Program Control Analyst? No Information not available 01/23/2023 What Is Your Relationship Status? Single [id number] Information not available 08/09/2022 Do You Use Your Seat Belt Or Car Seat Routinely? Yes Information not available 01/23/2023 Do You Have Smoke And Carbon Monoxide Detectors In Your Home? Yes Information not available 01/23/2023 Do You Use Sunscreen Routinely? No Information not available 01/23/2023 Have You Recently Traveled Abroad? No Information not available 01/23/2023 Do You Have Any Dietary Restrictions? No Information not available 01/23/2023 Sex: Unknown Functional Status Question Answer Note LastModified by Organizat ion Details LastModified Time Do you use any illicit or recreational drugs? No Information not available 01/23/2023 Do you or have you ever used any other forms of tobacco or nicotine? No Information not available 01/23/2023 What is your level of alcohol consumption? Occasional [id number] Information not available 08/09/2022 Are you currently employed? 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 Never used electronic cigarettes Information not available 01/23/2023 What is your exercise level? Occasional [id number] Information not available 08/09/2022 Mental Status None recorded. Family History Relationship Description Onset Age of this Age Resolved Age Notes LastModified by Organization Details LastModified Time Father Diabetes mellitus [id number] Not available 08/09/2022 00:52:55 Father Hypertensive disorder [id number] Not available 08/09/2022 00:52:55 Mother Hypertensive disorder [id number] Not available 08/09/2022 00:52:55 Mother Rheumatoid arthritis Not available 2022 12:30:57 Medical History Condition Response BOWEL PROBLEMS Y GI PROBLEMS Y HEADACHES/MIGRAINES Y Gynecological History Statement/Question Response Abnormal Pap Y Date of Last Pap Smear 08/16/2020 Current Control Method None Age at Menarche 15 Date of LMP 09/02/2020 Obstetrics History GPAL:G 0 P 0 0 0 0 Immunizations Vaccine Type Date Status Note Provider Nam e and Address Organization Details Recorded Time SARS-COV-2 (COVID-19) vaccine, UNSPECIFIED 3 completed Gissel Mckinnon RMA null, [facility] 05/11/2023 15:34:45 influenza, unspecified formulation 3 completed Gissel Mckinnon RMA null, [facility] 05/11/2023 15:34:55 COVID-19, mRNA, LNP-S, PF, 30 mcg/0.3 mL dose 1 completed Not Available [facility] 08/09/2022 01:22:06 COVID-19, mRNA, LNP-S, PF, 30 mcg/0.3 mL dose 1 completed Not Available [facility] 08/09/2022 01:22:06 COVID-19, mRNA, LNP-S, PF, 30 mcg/0.3 mL dose 2 completed Not Available [facility] 08/09/2022 01:22:06 influenza, unspecified formulation 0 completed Not Available [facility] 08/09/2022 01:22:06 Tdap 8 completed Not Available [facility] 08/09/2022 01:22:06 Past Encounters Encounter ID Performer Location Encounter Start Date Encounter Closed Date Diagnosis/Indication Diagnosis SNOMED-CT Code Diagnosis ICD10 Code Diagnosis IMO Codes Diagnosis Note [id number] [facility] _[facility]HENA_M IGRATION_ DEFAULT_1 _1 , 08/16/2020 00:00:00 08/16/2020 17:07:23 [id number] S_[facility] _ATHENA_M IGRATION_ DEFAULT_1 _1 , 09/22/2020 00:00:00 09/22/2020 11:33:00 [id number] BERNADETTE Barrios [facility] [place] [address] 07/25/2021 00:00:00 08/08/2021 13:45:46 [id number] Solis Zelaya MD [facility] [place] [address] [facility] [place] [address] 02/09/2022 00:00:00 03/10/2022 14:10:46 [id number] BERNADETTE Barrios [facility] [place] [address], [address] [place], [place] [address] [place] [address] 08/11/2022 14:34:20 08/11/2022 15:41:15 Adult health examination 109493511 Z00.01 annual wellness completed. Cholesterol screening 27 8604540 Z13.220 fasting lipids due Family his tory of Rheumatoid arthritis 990858156 Z82.61 screening RF testing. Family his tory of lupus erythematosus 751035810 Z84.0 pt would like screening autoimmune panels Long-term drug therapy 751433814 Z79.899 routine CBC and CMP due Pain in ce rvical spine 207432025 M54.2 check xray cspine. Pain in th oracic spine 682739712 M54.6 check xray tspine Anxiety 99976957 F41.9 stable off lexapro Migraine 58840067 G43.90 9 refill qulipta 60mg daily that is working well for migraine prevention . Skin lesion 21522917 L98 .9 refer for overall skin lesion checks [id number] BERNADETTE Barrios [facility] [place] [address] [facility] [place] [address] 11/17/2022 14:00:07 11/17/2022 14:53:45 Nipple infection 878394045 N61.0 rX for bactroban ointment localized area of nipple. there is no cellulitis extension off the focal nipple location. this is near piercing. [id number] BERNADETTE Barrios [facility] [place] [address], [address] [place] [address] [place] [address] 01/23/2023 12:26:49 01/23/2023 13:27:22 Contusion of nose 60004007 S00.33XA rx for nsaid therapy. ice. [id number] BERNADETTE Barrios [facility] [place] [address] [place] [address] 02/20/2023 14:40:10 02/20/2023 15:22:07 Diarrhea 22656188 R19.7 related to beef intake often Propensity to adverse reactions to food 977298276 Z91.018 check beef antibodies and milk panel. Right uppe r quadrant pain 549720133 R10.11 check u/s gallbladde r. sometimes pt is having RUQ pain after eating higher fat foods. none today on exam but on and off she experience s it. Health Concerns Section Related Observation LastModified by Organization Detai ls LastModified Time None Recorded Concern Status LastModified by Organization Details LastModified Time None Recorded Advance Directives Directive N: Payers Insurance Date Sequence Insurance Name Policy Number Policy M[place]ain Covered Member ID Mccain Member ID Guarantor Name 03/11/2023 1 [employer] [id number] Opal Rucker [id number] Opal Rucker Notes Date Note Type Note Provider Name and Address Organization Details Recorded Time 08/11/2022 text/html Anxiety, General ized DisorderReported by PatientHPIFor associated symptoms, patient reportsno difficulty concentrating,no difficulty controlling worry,no difficulty swallowing,no anxiety,no excessive sweating,no hot flashes,no palpitations,no shortness of breath,no nausea,no diarrhea,no fatigue,no irritability,no muscle tension,no muscle aches,no trembling,no twitching,no headaches,no restlessness, andno sleep disturbances.stopped taking lexapro, doing fine off of it BERNADETTE Barrios [address], [place], [address], [employer] [facility] [employer] [employer] 08/13/2022 22:17:50 11/17/2022 text/html Generic HPI TemplateReported by PatientHPIFor location, (right nipple). For quality, (tender to the touch). For severity, (worse after wearing tight bra and sweating). For duration, (2 months). BERNADETTE Barrios [address], [place], [address], [employer] 12/06/2022 23:02:37 01/23/2023 text/html Generic HPI TemplateReported by PatientHPIFor location, (facial area, nose). For quality, (aching, headache). For onset/timing, (6 days ago). For context, (pt hit her face on freezer door, bleeding and swelling were present at time of injury. swelling has decreased but lingering headache remains.). BERNADETTE Barrios [address], [place], [address], [employer] 02/08/2023 22:15:03 02/20/2023 text/html Generic HPI TemplateReported by PatientHPIFor duration, (about a month). For context, (nausea/vomitting/diar hea when eating beef). pt here to discuss food sensitivities BERNADETTE Barrios [address], [place], [address], [facility] 03/09/2023 23:32:12 OBGyn Episode No OBEpisode recorded.
--- NOTE | 2025-04-07 15:00 | NEURO_ITS ---
Impression: # Complains of wrist pain. Non-diabetic. ? 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 ? # No Carpal Tunnel Syndrome. ? # Normal needle/EMG exam. Nerve Conduction Studies ?Stim Site NR Peak (ms) P-T Amp (?V) Site1 Site2 Delta-P (ms) Dist (cm) Jamie (m/s) Left Median Anti Sensory (2-3nd Digit) Wrist ? 2.9 44.0 Wrist 2-3nd Digit 2.9 14.0 48 Wrist ? 2.8 46.3 Wrist 2-3nd Digit 2.9 14.0 48 Right Median Anti Sensory (2-3nd Digit) Wrist ? 2.9 49.4 Wrist 2-3nd Digit 2.9 14.0 48 Wrist ? 2.7 49.4 Wrist 2-3nd Digit 2.9 14.0 48 Left Radial Anti Sensory (Base 1st Digit) Wrist ? 2.0 33.2 Wrist Base 1st Digit 2.0 0.0 Right Radial Anti Sensory (Base 1st Digit) Wrist ? 2.3 34.3 Wrist Base 1st Digit 2.3 0.0 Left Ulnar Anti Sensory (5th Digit) Wrist ? 2.4 50.3 Wrist 5th Digit 2.4 14.0 58 Right Ulnar Anti Sensory (5th Digit) Wrist ? 2.5 46.3 Wrist 5th Digit 2.5 14.0 56 ?Stim Site NR Onset (ms) O-P Amp (mV) Site1 Site2 Delta-0 (ms) Dist (cm) Jamie (m/s) Left Median Motor (Abd Poll Brev) Wrist ? 3.0 4.9 Elbow Wrist 4.0 27.0 68 Elbow ? 7.0 4.9 Right Median Motor (Abd Poll Brev) Wrist ? 3.4 6.9 Elbow Wrist 4.5 28.0 62 Elbow ? 7.9 4.1 Left Ulnar Motor (Abd Dig Minimi) Wrist ? 2.2 6.9 A Elbow Wrist 4.8 27.0 56 A Elbow ? 7.0 4.7 B Elbow Wrist 3.8 22.0 58 B Elbow ? 6.0 4.9 Right Ulnar Motor (Abd Dig Minimi) Wrist ? 2.4 6.2 A Elbow Wrist 5.1 28.0 55 A Elbow ? 7.5 5.4 B Elbow Wrist 3.5 19.0 54 B Elbow ? 5.9 5.3 F Wave Studies ?NR F-Lat (ms) L-R F-Lat (ms) Left Median (Mrkrs) (Abd Poll Brev) ? 25.77 0.12 Right Median (Mrkrs) (Abd Poll Brev) ? 25.65 0.12 Left Ulnar (Mrkrs) (Abd Dig Min) ? 26.53 0.52 Right Ulnar (Mrkrs) (Abd Dig Min) ? 27.05 0.52 Electromyography ?Side Muscle Nerve Root Ins Act Fibs Amp Dur Recrt Comment Right 1stDorInt Ulnar C8-T1 Nml Nml Nml Nml Nml Right Ext Indicis Radial (Post Int) C7-8 Nml Nml Nml Nml Nml Right Ext Digitorum Radial (Post Int) C7-8 Nml Nml Nml Nml Nml Right BrachioRad Radial C5-6 Nml Nml Nml Nml Nml Right PronatorTeres Median C6-7 Nml Nml Nml Nml Nml Right Abd Poll Brev Median C8-T1 Nml Nml Nml Nml Nml Right ABD Dig Min Ulnar C8-T1 Nml Nml Nml Nml Nml Right FlexPolLong Median (Ant Int) C7-8 Nml Nml Nml Nml Nml Right Abd Poll Long Radial (Post Int) C7-8 Nml Nml Nml Nml Nml Left 1stDorInt Ulnar C8-T1 Nml Nml Nml Nml Nml Left Ext Indicis Radial (Post Int) C7-8 Nml Nml Nml Nml Nml Left Ext Digitorum Radial (Post Int) C7-8 Nml Nml Nml Nml Nml Left BrachioRad Radial C5-6 Nml Nml Nml Nml Nml Left PronatorTeres Median C6-7 Nml Nml Nml Nml Nml Left Abd Poll Brev Median C8-T1 Nml Nml Nml Nml Nml Left ABD Dig Min Ulnar C8-T1 Nml Nml Nml Nml Nml Left FlexPolLong Median (Ant Int) C7-8 Nml Nml Nml Nml Nml Left Abd Poll Long Radial (Post Int) C7-8 Nml Nml Nml Nml Nml
== END 2025-04-07 12:26 | disposition home or self-care (01) ==
LOC: ANHNEURO 12:26
PROVIDERS: Visit Provider Physician Assistant
DX: G56.23 Lesion of ulnar nerve, bilateral upper limbs (principal)
CPT/HCPCS: 95886; 95911